=== PATIENT | male | born 1940 | race Caucasian/White ===

== ENCOUNTER 2025-02-20 05:33 | Emergency (ER) | payer MEDICARE, SELFPAY ==
--- NOTE | ~2025-02-20 | CT_ITS ---
CLINICAL INDICATION: Constipation COMPARISON: None. TECHNIQUE: Multiple contiguous axial images of the abdomen and pelvis were performed without the admi nistration of intravenous contrast The dose-length product (DLP) was 884.90 mGy-cm. Automated exposure control and iterative reconstruction technique were employed. FINDINGS/OBSERVATIONS: Visualized lower thorax: The bilateral lung bases are clear. The heart is of normal size, without pericardial effusion. Small hiatal hernia is present. Liver: The liver demonstrates homogeneous attenuation and is not enlarged. Gallbladder and biliary system: The gallbladder is surgically absent. Pancreas: Limited evaluation of the pancreas secondary to the lack of intravenous contrast. Spleen: The spleen demonstrates homogeneous attenuation and is not enlarged. Kidneys: The bilateral kidneys are unremarkable, without hydronephrosis or renal calculi. Adrenal glands: Unremarkable. Gastrointestinal tract: Colonic diverticulosis without surrounding inflammatory change. Fecal stasis within the colon. Fecal stasis distends the rectum with mural thickening and surrounding inflammatory change, findings suggesting fecal impaction. Inflammatory change within the presacral position, also consistent with fecal impaction. Appendix: The appendix is not definitively visualized. However, no pericecal inflammatory change is identified suggest the presence of acute appendicitis. Vasculature: Densely calcified atherosclerotic disease. Lymph nodes: Scattered non-pathologically enlarged/morphologically suspicious lymph nodes within the retroperitone um and at the root of the mesentery. Pelvic structures: The bladder is markedly distended, and otherwise unremarkable. The prostate gland is not enlarged. Body wall and musculoskeletal: Age-appropriate degenerative disease within the lumbosacral spine. IMPRESSION: Fecal impaction, as detailed above. Significant bladder distention. Reviewed, dictated and finalized at location A.
[2025-02-20 05:31] VITALS: BP 141/76; PULSE 74; RESP 20; TEMP 36.8; O2SAT 100
[2025-02-20 05:51] VITALS: BP 141/75; PULSE 70; RESP 16; O2SAT 98
--- NOTE | 2025-02-20 05:57 | ED.GENADULT ---
HPI - General Adult General Chief complaint: Unspecified Stated complaint: Constipation Time Seen by Provider: 02/20/25 05:57 Source: patient and family () Mode of arrival: EMS Limitations: no limitations History of Present Illness HPI narrative: Patient presents with concern for constipation. His last bowel movement was 5 days ago, Friday. He states he has not had a sufficient bowel movement only some occasional watery stools oozing from his rectum. He has longstanding history of constipation although not this bad and is typically on a bowel regimen but he and his are traveling [place] the country currently visiting various family members and he did not bring his bowel regimen with him. He had previously received regular colonoscopies. He is intermittently experiencing abdominal pain associated with this as he feels he is distended. He also notes that this is making it difficult for him to urinate. He has been trying to stay hydrated. He is not on any narcotic/opiate therapy. He has not noticed any bleeding from his rectum or in the discharge/stool from his rectum. Not on any anticoagulation other than aspirin. He denies any nausea, vomiting, fevers, chills. His last oral intake was at 7:00 p.m. but he denies having an appetite. Patient his reside in [place] which is where they are headed back to today, a [address], but he does all the driving and states that be seated has been difficult given his symptoms. Related Data Allergies Allergy/AdvReac Type Severity Reaction Status Date / Time No Known Allergies Allergy Verified 02/20/25 05:36 [facility] Past Medical History Medical History CKD (chronic kidney disease) Constipation Surgical History Surgical History (Updated 02/20/25 @ 18:09 by Arpita Blackman MD) History of colonoscopy Social History Social History (Updated 02/20/25 @ 18:10 by Arpita Blackman MD) Social History: Regularly travels cross country/driving Living arrangements: with family Additional living arrangements comments: , in [place] Exam Narrative: GENERAL: Well-appearing, well-nourished, and in no acute distress. HEAD: Normocephalic, atraumatic. EYES: Non injected, non icteric ENT: Nares clear, no rhinorrhea or epistaxis. Gross auditory acuity intact. NECK: Supple. No meningismus. CHEST: Speaking in full sentences. No respiratory distress. HEART: Regular rate and rhythm. . ABDOMEN: Soft, distended. Mild firmness particularly in the right lower quadrant left lower quadrant but No rigidity or guarding. Not peritoneal EXTREMITIES: Normal range of motion. No lower extremity edema. SKIN: Warm, dry, no rash. NEURO: No focal deficits. Alert and oriented. Answering questions. Following commands. Normal speech without aphasia or dysarthria. PSYCH: Normal mood and affect. Course Vital Signs Vital signs: Vital Signs Temperature 98.2 F 02/20/25 05:31 Pulse Rate 74 02/20/25 05:31 Respiratory Rate 20 02/20/25 05:31 Blood Pressure 141/76 H 02/20/25 05:31 Pulse Oximetry 100 02/20/25 05:31 Oxygen Delivery Room Air 02/20/25 05:31 Temperature 98.2 F 02/20/25 05:31 Pulse Rate 73 02/20/25 07:16 Respiratory Rate 18 02/20/25 07:16 Blood Pressure 144/71 H 02/20/25 07:16 Pulse Oximetry 99 02/20/25 07:16 Oxygen Delivery Room Air 02/20/25 05:31 Procedures Rectal Disimpaction Rectal Disimpaction #1: Rectal Disimpaction Date: 02/20/25 Rectal Disimpaction Time: 07:45 Time out performed rectal disimpaction: No Indication: fecal impaction Procedural Sedation: No Sedation/Analgesia: none Technique: manual disimpaction with gloved finger Result: significant stool output Patient Tolerated Procedure: well and no complications Complications: none Medical Decision Making MDM Narrative Medical decision making narrative: Exceedingly pleasant Patient presents with concern for constipation as he has not had bowel movement since Friday the only occasional watery using stool from his rectum. He has a history of constipation is normally on bowel regimen however hadn't been taking while traveling. In the emergency department he is afebrile with acceptable vital signs, mild hypertension. Hyperglycemia without anion gap acidosis. Creatinine is greater than 2 with no prior for comparison. Initially ordered 1L IVF although later patient is able to say that his GFR had been 25 and then more recently 27 so this does appear to be chronic. He has a mild leukocytosis, mild thrombocytopenia, and he is anemic with no prior for comparison. Fecal impaction on CT as below. Digital disimpaction performed as above. Patient tolerates this well and is experiencing significant relief after this is performed. Glycerin suppository was inserted after disimpaction. Bowel regimen ordered although RN discussed with patient which medications he preferred to take now, based on if he and were staying in the area versus driving back to [place] today. Did recommend that at the very least metamucil be given. Advised follow-up with his primary care physician and to return to the emergency department any new or worsening symptoms. Differential Diagnosis Differential Diagnosis: Constipation, obstipation, fecal impaction, small-bowel obstruction Vital Signs Vital Signs: Vital Signs Temperature 98.2 F 02/20/25 05:31 Pulse Rate 74 02/20/25 05:31 Respiratory Rate 20 02/20/25 05:31 Blood Pressure 141/76 H 02/20/25 05:31 Pulse Oximetry 100 02/20/25 05:31 Oxygen Delivery Room Air 02/20/25 05:31 Temperature 98.2 F 02/20/25 05:31 Pulse Rate 73 02/20/25 07:16 Respiratory Rate 18 02/20/25 07:16 Blood Pressure 144/71 H 02/20/25 07:16 Pulse Oximetry 99 02/20/25 07:16 Oxygen Delivery Room Air 02/20/25 05:31 Lab Data Lab results reviewed: Yes I reviewed the patient's lab results. 02/20/25 06:21 02/20/25 06:21 Labs: Lab Results 02/20/25 02/20/25 Range/Units 06:21 06:36 WBC 10.6 H (4.5-10.0) K/mm3 RBC 3.69 L (4.6-6.20) M/mm3 Hgb 11.6 L (14.0-18.0) g/dL Hct 35.4 L (42.0-52.0) % MCV 95.9 (80-100) fl MCH 31.4 (26-34) pg MCHC 32.8 (32-36) g/dl RDW 13.8 (11.5-14.5) % Plt Count 135 L (150-375) k/mm3 MPV 10.9 H (7.4-10.4) fl Immature Gran % (Auto) 0.4 (0-0.5) % Neut % (Auto) 79.3 H (45.5-73.1) % Lymph % (Auto) 11.8 L (18.3-44.2) % Grainger % (Auto) 7.1 (2.6-8.5) % Eos % (Auto) 0.9 (0-4.4) % Baso % (Auto) 0.5 (0.2-1.2) % Lymph # (Auto) 1.25 (0.9-3.2) K/mm3 Grainger # (Auto) 0.8 H (0.1-0.6) K/mm3 Eos # (Auto) 0.1 (0-0.3) K/mm3 Baso # (Auto) 0.1 (0.0-0.1) K/mm3 Abs Immat Gran (auto) 0.04 H (0.00-0.031) K/mm3 Absolute Neuts (auto) 8.4 H (1.3-6.7) K/mm3 Absolute Nucleated RBC 0.000 (0.0-0.012) K/mm3 Nucleated RBC % 0.0 (0.0-0.2) % Sodium 142 (137-145) mmol/L Potassium 4.4 (3.4-5.0) mmol/L Chloride 109 H (98-107) mmol/L Carbon Dioxide 24 (22-30) mmol/L Anion Gap 9 (4-12) mmol/L BUN 33 H (9-20) mg/dL Creatinine 2.33 H (0.7-1.3) mg/dL Estim Creat Clear Calc 21 ml/min Estimated GFR 27 L (59 - ) Glucose 191 H (65-110) mg/dL Lactic Acid 1.4 (0.7-2.0) mmol/L Calcium 8.8 (8.4-10.2) mg/dL Magnesium 2.0 (1.6-2.3) mg/dL Total Bilirubin 0.3 (0.2-1.3) mg/dL AST 29 (17-59) U/L ALT 22 (6-50) U/L Alkaline Phosphatase 79 (38-126) U/L Total Protein 7.0 (6.3-8.2) g/dL Albumin 4.1 (3.5-5.1) g/dL Urine Color Yellow (Yellow) Urine Appearance Clear (Clear) Urine pH 6.0 (5.0-9.0) Ur Specific [place] 1.014 (1.001-1.035) Urine Protein Trace (Negative) mg/dL Urine Glucose (UA) 2+ H (Negative) mg/dL Urine Ketones Negative (Negative) mg/dL Ur Blood (Man) Negative (Negative) Urine Nitrate Negative (Negative) Urine Bilirubin Negative (Negative) Urine Urobilinogen 0.2 (<2.0) mg/dL Leukocyte Esterase Rfl Negative (Negative) LAURO/UL Urine RBC 0-2 (0-2) /hpf Urine WBC 0-5 (0-3) /hpf Ur Squamous Epith Cells None seen (Few) /hpf Urine Bacteria None seen /hpf Urine Casts 0-2 Imaging Data Radiologist's impression: Impressions Abdomen/Pelvis CT 02/20/25 07:01 IMPRESSION: Fecal impaction, as detailed above. Significant bladder distention. Discharge Plan Discharge Clinical Impression: Hyperglycemia, CKD (chronic kidney disease), Normocytic anemia, Constipation, Fecal impaction in rectum Patient Disposition: Home Condition: Stable Instructions: Antibiotic Form, Constipation (ED), Chronic Kidney Disease (ED), High Fiber Diet (ED), Chronic Kidney Disease Diet (DC), Fecal Impaction (ED), Anemia (ED) Additional Instructions: You tolerated digital disimpaction well and should be able to start a bowel regimen that includes the spectrum of stool softeners (like metamucil/fiber) , Miralax, and, if needed, laxatives (magnesium citrate). Drink plenty of fluids and make sure your diet is high in fiber. If needed, can also perform an enema at home. Follow-up with primary care physician back in [place]. Return to the emergency department with any new or worsening symptoms. Patient Language: Malawian Prescriptions: New psyllium husk [Metamucil] 0.4 gram capsule 0.4 g PO DAILY Qty: 30 0RF polyethylene glycol 3350 [Miralax] 17 gram/dose powder 17 g PO DAILY Qty: 119 0RF magnesium citrate Solution 150 ml PO DAILY PRN (Reason: constipation) Qty: 296 0RF Fleet Enema 19-7 gram/118 mL enema 118 ml RECTAL ONCE PRN (Reason: constipation) Qty: 133 0RF Follow-up/Referrals: PHYSICIAN NOT ON STAFF,NONSTAFF [Primary Care Provider] - Time of Disposition: 08:05
--- OUTSIDE RECORDS SUMMARY | 2025-02-20 06:16 | XMS_ITS | Clinical Summary ---
Author Organization [facility] Facility Address [address] [address] Care Team Providers Care Byproduct Engineer Name Role Phone Unavailable Primary Care Provider Unavailabl e Allergies Active Allergy Reactions Criticality Noted Date Comments Morphine And Codeine Medium 02/17/2014 Causes skin to crawl Medications allopurinol (ZYLOPRIM) 300 MG tablet Take 150 mg by mouth 1 (one) time each day Patient takes 1/2 pill daily Active atorvastatin (LIPITOR) 40 MG tablet Take 40 mg by mouth 1 (one) time each day Active cyanocobalamin (VITAMIN B-12) 1000 MCG tablet Take 100 mcg by mouth 1 (one) time each day Active [place]-3 Fatty Acids (Fish Oil) 1000 MG capsule delayed-release Take by mouth Active insulin glargine (LANTUS) 100 UNIT/ML injection Inject 24 Units under the skin 1 (one) time each day Active pregabalin (LYRICA) 75 MG capsule Take 75 mg by mouth in the morning and 75 mg in the evening. Active traZODone (DESYREL) 100 MG tablet Take 100 mg by mouth every night Active cetirizine (ZyrTEC) 10 MG chewable tablet Chew 10 mg in the morning and 10 mg in the evening. Active Multiple Vitamin (multivitamin) capsule Take 1 capsule by mouth 1 (one) time each day Active tamsulosin (FLOMAX) 0.4 MG 24 hr capsule Take 0.4 mg by mouth in the morning and 0.4 mg in the evening. Active Multiple Vitamins-Minera ls (PRESERVISION AREDS 2 PO) Take 2 tablets by mouth in the morning and 2 tablets in the evening. Active ferrous sulfate 325 (65 Fe) MG EC tablet Take 325 mg by mouth in the morning. Do not crush, chew, or split. Active metoprolol succinate XL (Toprol XL) 50 MG 24 hr tablet Take 1 tablet (50 mg total) by mouth 1 (one) time each day Do not crush or chew. 30 tablet 11 09/16/20 24 025 Active aspirin (ST EZRA) 81 MG EC tablet Take 81 mg by mouth 1 (one) time each day Active METAMUCIL FIBER PO Take 2 capsules by mouth in the morning. Active Nutritional Supplements (MAINTAIN PO) Take by mouth Active omeprazole (PriLOSEC) [address] capsule Take 40 mg by mouth if needed (For heartburn) Do not crush or chew. 025 Discontinued(Di scontinued by another clinician (does not appear on AVS)) Cholecalciferol (Vitamin D3) 1.25 MG (97781 UT) capsule Take 1.25 mg by mouth in the morning. 025 Discontinued Active Problems Problem Noted Date Diagnosed Date Vitamin D deficiency, not otherwise specified Hyperparathyroidism due to renal insufficiency 0 01/31/2025 Proteinuria, not otherwise specified 01/31/2025 Hypertensive chronic kidney disease with stage 1 through stage 4 chronic kidney disease, or unspecified chronic kidney disease 09/16/2024 Type 2 diabetes mellitus wit h diabetic chronic kidney disease 09/16/2024 Anemia in chronic kidney disease 09/16/2024 Iron deficiency anemia, not otherwise specified 09/16/2024 Hypertension 09/16/2024 Stage 3b chronic kidney disease 09/16/2024 Acute nontraumatic kidney injury, not otherwise specified 09/16/2024 Bacterial endocarditis 06/02/2024 Diabetic peripheral neuropathy 06/02/2024 Hyperlipidemia 06/02/2024 Gout 06/02/2024 Insomnia 06/02/2024 Degenerative disorder of macula 06/02/2024 Sensorineural hearing loss 06/02/2024 Chronic diastolic heart failure 06/02/2024 Retroperitoneal hemorrhage 06/02/2024 Gastroesophageal reflux disease 06/02/2024 Benign prostatic hyperplasia with outflow obstru ction 06/02/2024 Abnormal weight loss 06/02/2024 Decrease in appetite 06/02/2024 Compression fracture of thoracic vertebra 2023 Old myocardial infarction 06/02/2024 At increased risk for falls 06/02/2024 Hypoglycemia due to type 2 diabetes mellitus 12/2023 Encounters Date Type Department Care Team Description 01/31/2025 10:20 AM EDT Office Visit [facility] [address] [place] [address] Rob Anderson MD Hypertensive chronic kidney disease with stage 1 through stage 4 chronic kidney disease, or unspecified chronic kidney disease (Primary Dx); Type 2 diabetes mellitus with diabetic chronic kidney disease (HCC); Anemia in chronic kidney disease; Iron deficiency anemia, not otherwise specified; Hypertension; Stage 3b chronic kidney disease (HCC); Acute nontraumatic kidney injury, not otherwise specified (HCC); Vitamin D deficiency, not otherwise specified; Hyperparathyroidism due to renal insufficiency (HCC); Proteinuria, not otherwise specified 01/27/2025 Orders Only [facility] [address] [place] [address] Rob Anderson MD 01/27/2025 Office Communication [facility] [address] [place] [address] Adriane Mccall from Last 3 Months Social History Tobacco Use Types Packs/Day Years Used Date Smoking Tobacco: Never Assessed Sex and Gender Information Value Date Recorded Sex Assigned at Not on file Legal Sex Male 10:56 AM EDT Gender Identity Not on file Sexual Orientation Not on file Last Filed Vital Signs Vital Sign Reading Time Taken Comments Blood Pressure 130/86 01/31/2025 10:40 AM EDT Pulse 80 01/31/2025 10:40 AM EDT Temperature - - Respiratory Rate 12 01/31/2025 10:40 AM EDT Oxygen Saturation 96% 01/31/2025 10:40 AM EDT Inhaled Oxygen Concentration - - Weight 82.2 kg (181 lb 2.4 oz) 01/31/2025 10:40 AM EDT Height 177.8 cm (5' 10) 01/31/2025 10:40 AM EDT Body Mass Index 25.99 01/31/2025 10:40 AM EDT Plan of Treatment Upcoming Encounters Date Type Department Care Team (Late st Contact Info) Description 06/30/2025 2:40 PM EDT Office Visit [facility] [address] [place] [address] Rob Anderson MD [address] [place] [address] Health Maintenance Due Date Last Done Comments Diabetes: Ophthalmology Exam 05/21/2024 05/03/2022 Diabetes: Pedal Pulse Checked 05/21/2024 Diabetes: Sensory Foot Exam 05/21/2024 Diabetes: Visual Foot Exam 05/21/2024 Diabetes: Hemoglobin A1C 12/08/2024 024, 04/30/2024, 03/18/2024, Additional history exists Influenza Vaccine (Season Ended) 2025 07/01/2022, 07/15/2018, 07/16/2017, Additional history exists Pneumococcal Vaccine: 50+ Years Completed 11/01/2014, 03/10/2007 Hepatitis B Vaccine Aged Out No longe r eligible based on patient's age to complete this topic Procedures Procedure Name Priority Date/Time Associated Diagnosis Comments VITAMIN D 25 HYDROXY Routine 01/27/2025 2:49 PM EDT FERRITIN Routine 01/27/2025 2:49 PM EDT PTH, INTACT AND CALCIUM Routine 01/27/2025 2:49 PM EDT URINE ALBUMIN / CREATININE RATIO Routine 01/27/2025 2:49 PM EDT MAGNESIUM Routine 01/27/2025 2:49 PM EDT IRON PANEL (FE, TIBC, TSAT) Routine 01/27/2025 2:49 PM EDT URINALYSIS, COMPLETE Routine 01/27/2025 2:49 PM EDT PROTEIN / CREATININE RATIO, URINE Routine 01/27/2025 2:49 PM EDT Hypertensive chronic kidney disease with stage 1 through stage 4 chronic kidney disease, or unspecified chronic kidney disease Type 2 diabetes mellitus with diabetic chronic kidney disease (HCC) Anemia in chronic kidney disease Iron deficiency anemia, not otherwise specified Hypertension Stage 3b chronic kidney disease (HCC) Acute nontraumatic kidney injury, not otherwise specified (HCC) Vitamin D deficiency, not otherwise specified Hyperparathyroidism due to renal insufficiency (HCC) Proteinuria, not otherwise specified RENAL FUNCTION PANEL Routine 01/27/2025 2:49 PM EDT Hypertensive chronic kidney disease with stage 1 through stage 4 chronic kidney disease, or unspecified chronic kidney disease Type 2 diabetes mellitus with diabetic chronic kidney disease (HCC) Anemia in chronic kidney disease Iron deficiency anemia, not otherwise specified Hypertension Stage 3b chronic kidney disease (HCC) Acute nontraumatic kidney injury, not otherwise specified (HCC) Vitamin D deficiency, not otherwise specified Hyperparathyroidism due to renal insufficiency (HCC) Proteinuria, not otherwise specified CBC Routine 01/27/2025 2:49 PM EDT Hypertensive chronic kidney disease with stage 1 through stage 4 chronic kidney disease, or unspecified chronic kidney disease Type 2 diabetes mellitus with diabetic chronic kidney disease (HCC) Anemia in chronic kidney disease Iron deficiency anemia, not otherwise specified Hypertension Stage 3b chronic kidney disease (HCC) Acute nontraumatic kidney injury, not otherwise specified (HCC) Vitamin D deficiency, not otherwise specified Hyperparathyroidism due to renal insufficiency (HCC) Proteinuria, not otherwise specified PROTEIN / CREATININE RATIO, URINE Routine 01/27/2025 2:49 PM EDT VITAMIN D 25 HYDROXY Routine 01/27/2025 2:49 PM EDT FERRITIN Routine 01/27/2025 2:49 PM EDT URINALYSIS WITH MICROSCOPIC Routine 01/27/2025 2:49 PM EDT CBC Routine 01/27/2025 2:49 PM EDT URINE ALBUMIN / CREATININE RATIO Routine 01/27/2025 2:49 PM EDT RENAL FUNCTION PANEL Routine 01/27/2025 2:49 PM EDT IRON PANEL (FE, TIBC, TSAT) Routine 01/27/2025 2:49 PM EDT MAGNESIUM Routine 01/27/2025 2:49 PM EDT PTH, INTACT AND CALCIUM Routine 01/27/2025 2:49 PM EDT HEMOGLOBIN A1C (EXTERNAL RESULT ENTRY) Routine 09/09/2024 from Last 3 Months or Most Recently Relevant to Health Maintenance Results * (ABNORMAL) Urinalysis, Complete (01/27/2025 2:49 PM EDT) Color, Urine YELLOW YELLOW See ord er comments Appearance Urine CLEAR CLEAR See order comments Specific Bude, UA 1.015 1.001 - 1.035 See order comments pH Urine 5.5 5.0 - 8.0 See order comments Glucose Urine TRACE(A) NEGATIVE See or heron comments Bilirubin Urine NEGATIVE NEGATIVE See order comments Ketones, Urine NEGATIVE NEGATIVE See o rder comments Blood Urine NEGATIVE NEGATIVE See orde r comments Protein Urine TRACE(A) NEGATIVE See or heron comments Nitrite, Urine NEGATIVE NEGATIVE See o rder comments WBC Esterase Urine NEGATIVE NEGATIVE See order comments WBC NONE SEEN < OR = 5 /HPF See order comments RBC, Urine NONE SEEN < OR = 2 /HPF See order comments Squamous Epithelial, Urine NONE SEEN < OR = 5 /HPF See order comments Trans Epithelial, Urine DNR < OR = 5 See order comments Renal Epithelial Cells, Urine DNR < OR = 3 See order comments Bacteria, Urine NONE SEEN NONE SEEN /HPF See order comments Calcium Oxalate Crystals, Urine DNR NONE OR FEW See order comments Triple Phosphate Crystals, Urine DNR NONE OR FEW See order comments Uric Acid Crystals, Urine DNR NONE OR FEW See order comments Amorphous Sediments DNR NONE OR FEW See order comments Crystals DNR NONE SEEN See order comments Hyaline Casts, Urine NONE SEEN NONE SEEN /LPF See order comments Granular Casts, Urine DNR NONE SEEN See order comments Casts DNR NONE SEEN See order comments Yeast Budding, Urine DNR NONE SEEN See order comments Comments DNR See order comments Note: See order comments Comment: This urine was analyzed for the presence of WBC, RBC, bacteria, casts, and other formed elements. Only those elements seen were reported. Lab Performed By: [facility], [facility] [facility], [place], [address], Thanh Drew [facility] [place] [address] 01/27/2025 2:49 PM EDT 01/27/2025 2:52 PM EDT Rob Anderson MD LAB [id number] ICITED RESULTS Final Result Performing Organization Address [facility] Co de Phone Number JERAMY MILLER See order comments [place] [address] * Iron Panel (Fe, TIBC, TSAT) (01/27/2025 2:49 PM EDT) Only the most recent of2 resultswithin the time period is included. Iron, Total 102 50 - 180 mcg/dL See order comments TIBC 325 250 - 425 mcg/dL (calc) See order comments Iron Saturation (TSat) 31 20 - 48 % (calc) See order comments Comment: Lab Performed By: [facility], [facility] [facility], [place], [address], Thanh Drew [facility] [place] [address] 01/27/2025 2:49 PM EDT 01/27/2025 2:52 PM EDT us Rob Anderson MD LAB BLOOD ORDERABLES Final Resul t Performing Organization Address [facility] Co de Phone Number JERAMY MILLER See order comments [place] [address] * PTH, Intact and Calcium (01/27/2025 2:49 PM EDT) Only the most recent of2 resultswithin the time period is included. PTH, Intact 55 16 - 77 pg/mL See order comments Comment: Interpretive Guide Intact PTH Calcium ------- Normal Parathyroid Normal Normal Hypoparathyroidism Low or Low Normal Low Hyperparathyroidism Primary Normal or High High Secondary High Normal or Low Tertiary High High Non-Parathyroid Hypercalcemia Low or Low Normal High Calcium 9.0 8.6 - 10.3 mg/dL See order comments Comment: Lab Performed By: [facility], [facility] [place], [address], Thanh Drew [facility] [place] [address] 01/27/2025 2:49 PM EDT 01/27/2025 2:52 PM EDT us Rob Anderson MD LAB BLOOD ORDERABLES Final Resul t Performing Organization Address [facility] Co de Phone Number JERAMY MILLER See order comments [place] [address] * (ABNORMAL) Urine Protein / creatinine ratio (01/27/2025 2:49 PM EDT) Only the most recent of2 resultswithin the time period is included. Creatine Urine, Random 77 20 - 320 mg/dL See order comments Protein/Creatinin e Ratio, Urine 286(H) 25 - 148 mg/g creat See order comments Urine Protein/Creatinin e Ratio 0.286(H) 0.025 - 0.148 mg/mg creat See order comments Protein Urine Random 22 5 - 25 mg/dL See order comments Comment: Lab Performed By: [facility], [address] [place], [address], Thanh Drew [facility] [place] [address] Urine specimen (specimen) Urine specimen obtained by clean catch procedure / Unknown 01/27/2025 2:49 PM EDT 01/27/2025 2:52 PM EDT us Rob Anderson MD LAB URINE ORDERABLES Final Resul t Performing Organization Address [facility]/ZIP Co de Phone Number JERAMY MILLER See order comments [place] [address] * Urine Albumin / Creatinine Ratio (01/27/2025 2:49 PM EDT) Only the most recent of2 resultswithin the time period is included. Creatine Urine, Random 77 20 - 320 mg/dL See order comments Albumin, Urine 1.9 See Note: mg/dL See order comments Comment: Reference Range: Reference Range Not established Alb/Creat Ratio, Ur 25 <30 mg/g creat See order comments Comment: The ADA defines abnormalities in albumin excretion as follows: Albuminuria Category Result (mg/g creatinine) Normal to Mildly increased <30 Moderately increased 30-299 Severely increased > OR = 300 The ADA recommends that at least two of three specimens collected within a 3-6 month period be abnormal before considering a patient to be within a diagnostic category. Lab Performed By: [facility], [address] [place] [address], [phone], Thanh Drew [facility] [address] [place] [address] [place] [facility] 01/27/2025 2:49 PM EDT 01/27/2025 2:52 PM EDT Rob Anderson MD LAB URINE ORDERABLES Final Resul t JERAMY MILLER See order comments [place] [address] * Vitamin D 25 Hydroxy (01/27/2025 2:49 PM EDT) Only the most recent of2 resultswithin the time period is included. Vitamin D, 25-OH, Total, IA 70 30 - 100 ng/mL See order comments Comment: Vitamin D Status 25-OH Vitamin D: Deficiency: <20 ng/mL Insufficiency: 20 - 29 ng/mL Optimal: > or = 30 ng/mL For 25-OH Vitamin D testing on patients on D2-supplementation and patients for whom quantitation of D2 and D3 fractions is required, the QuestAssureD(TM) 25-OH VIT D, (D2,D3), LC/MS/MS is recommended: order code 39572 (patients >2yrs). See Note 1 Note 1 For additional information, please refer to http://education.Autopilot (formerly [employer]isl[employer]).Sysorex/faq/DZA392 (This link is being provided for informational/ educational purposes only.) Lab Performed By: [facility], [address] [place] [address], [phone], Thanh Drew [facility] [address] [place] [address] [place] [address] 01/27/2025 2:49 PM EDT 01/27/2025 2:52 PM EDT us Rob Anderson MD LAB BLOOD ORDERABLES Final Resul t JERAMY MILLER See order comments [place] [address] * (ABNORMAL) Urinalysis with microscopic (01/27/2025 2:49 PM EDT) Color, Urine YELLOW YELLOW [facility] Appearance Urine CLEAR CLEAR [facility] Specific Bude, UA 1.015 1.001 - 1.035 [facility] pH Urine 5.5 5.0 - 8.0 [facility] Glucose, Ur TRACE(A) NEGATIVE [facility] Bilirubin, Urine NEGATIVE NEGATIVE [facility] Ketones, Urine NEGATIVE NEGATIVE [facility] Hemoglobin Ur Ql Strip NEGATIVE NEGATIVE [facility] Protein, Ur TRACE(A) NEGATIVE [facility] Nitrite, Urine NEGATIVE NEGATIVE [facility] WBC Esterase Urine NEGATIVE NEGATIVE [facility] WBC, Urine NONE SEEN < OR = 5 /HPF [facility] RBC, Urine NONE SEEN < OR = 2 /HPF [facility] Epithelial Cells in Urine NONE SEEN < OR = 5 /HPF [facility] Trans Epithelial, Urine CANCELED < OR = 5 /HPF [facility] Comment:Result canceled by t he ancillary. Renal Epithelial Cells, Urine CANCELED < OR = 3 /HPF [facility] Comment:Result canceled by t he ancillary. Bacteria NONE SEEN NONE SEEN /HPF [facility] Calcium Oxalate Crystals, Urine CANCELED NONE OR FEW /HPF [facility] Comment:Result canceled by t he ancillary. Triple Phosphate Crystals, Urine CANCELED NONE OR FEW /HPF [facility] Comment:Result canceled by t he ancillary. Uric Acid Crystals, Urine CANCELED NONE OR FEW /HPF [facility] Comment:Result canceled by t he ancillary. Amorphous Sediments CANCELED NONE OR FEW /HPF [facility] Comment:Result canceled by t he ancillary. Crystals CANCELED NONE SEEN /HPF [facility] Comment:Result canceled by t he ancillary. Hyaline Casts, Urine NONE SEEN NONE SEEN /LPF [facility] Granular Casts, Urine CANCELED NONE SEEN /LPF [facility] Comment:Result canceled by t he ancillary. Casts CANCELED NONE SEEN /LPF [facility] Comment:Result canceled by t he ancillary. Yeast, UA CANCELED NONE SEEN /HPF [facility] Comment:Result canceled by t he ancillary. Note: [facility] Comment: This urine was analyzed for the presence of WBC, RBC, bacteria, casts, and other formed elements. Only those elements seen were reported. 01/27/2025 2:49 PM EDT 01/27/2025 2:52 PM EDT Narrative [facility] - 01/28/2025 2:20 PM EDT FASTING:NO FASTING: NO Resulting Agency Comment Performing Organization Information: Site ID: [id number] Name: [facility] Address: [address] [place] [id number] Director: Thanh Drew us Rob Anderson MD LAB URINE ORDERABLES Final Resul t [facility] [address] * (ABNORMAL) CBC with Platelets no Diff (01/27/2025 2:49 PM EDT) Only the most recent of2 resultswithin the time period is included. WBC 7.1 3.8 - 10.8 Thousand/u L See order comments RBC 3.59(L) 4.20 - 5.80 Million/uL See order comments Hgb 11.7(L) 13.2 - 17.1 g/dL See order comments Hematocrit 35.3(L) 38.5 - 50.0 % See order comments MCV 98.3 80.0 - 100.0 fL See order comments MCH 32.6 27.0 - 33.0 pg See order comments MCHC 33.1 32.0 - 36.0 g/dL See order comments Comment: For adults, a slight decrease in the calculated MCHC value (in the range of 30 to 32 g/dL) is most likely not clinically significant; however, it should be interpreted with caution in correlation with other red cell parameters and the patient's clinical condition. RDW 14.2 11.0 - 15.0 % See order comments Platelets 128(L) 140 - 400 Thousand/u L See order comments MPV 11.6 7.5 - 12.5 fL See order comments Comment: Lab Performed By: [facility], [address] [place], [address], Thanh Drew [facility] [address] [place] [address] Blood specimen (specimen) Venous blood / Unknown 01/27/2025 2:49 PM EDT 01/27/2025 2:52 PM EDT us Rob Anderson MD LAB BLOOD ORDERABLES Final Resul t [facility] See order comments [place] [address] * Magnesium (01/27/2025 2:49 PM EDT) Only the most recent of2 resultswithin the time period is included. Magnesium 1.9 1.5 - 2.5 mg/dL See order comments Comment: Lab Performed By: [facility], [address] [place], [address], Thanh Drew [facility] [place] [address] 01/27/2025 2:49 PM EDT 01/27/2025 2:52 PM EDT us Rob Anderson MD LAB BLOOD ORDERABLES Final Resul t Performing Organization Address [facility] de Phone Number [facility] See order comments [place] [address] * Ferritin (01/27/2025 2:49 PM EDT) Only the most recent of2 resultswithin the time period is included. Pathologist [facility] Ferritin 112 24 - 380 ng/mL See order comments Comment: Lab Performed By: [facility], [address] [place] [address], [phone], Thanh Drew [facility] [place] [address] 01/27/2025 2:49 PM EDT 01/27/2025 2:52 PM EDT us Rob Anderson MD LAB BLOOD ORDERABLES Final Resul t Performing Organization Address [facility] de Phone Number [facility] See order comments [place] [address] * (ABNORMAL) Renal function panel (01/27/2025 2:49 PM EDT) Only the most recent of2 resultswithin the time period is included. Glucose 195(H) 65 - 139 mg/dL See order comments Comment: Non-fasting reference interval BUN 39(H) 7 - 25 mg/dL See order comments Creatinine 2.27(H) 0.70 - 1.22 mg/dL See order comments eGFR CKD-EPI CR 2020 27(L) > OR = 60 mL/min/1.7 3m2 See order comments BUN/Creatinine Ratio 17 6 - 22 (calc) See order comments Sodium 139 135 - 146 mmol/L See order comments Potassium 4.4 3.5 - 5.3 mmol/L See order comments Chloride 106 98 - 110 mmol/L See order comments Bicarbonate (CO2) 24 20 - 32 mmol/L See order comments Calcium 9.0 8.6 - 10.3 mg/dL See order comments Phosphorus 4.2 2.1 - 4.3 mg/dL See order comments Albumin 3.9 3.6 - 5.1 g/dL See order comments Comment: Lab Performed By: [facility], [address] [place] [address], [phone], Thanh Drew [facility] [address] [place] [address] Blood specimen (specimen) Venous blood / Unknown 01/27/2025 2:49 PM EDT 01/27/2025 2:52 PM EDT Rob Anderson MD LAB BLOOD ORDERABLES Final Resul t JERAMY MILLER See order comments [place] [address] * Hemoglobin A1C (09/09/2024) Hemoglobin A1C 7.2 Blood specimen (specimen) Venous blood / Unknown 09/09/2024 Toño Provider LAB BLOOD ORDERABLES Sade l Result from Last 3 Months or Most Recently Relevant to Health Maintenance [facility]
--- OUTSIDE RECORDS SUMMARY | 2025-02-20 06:16 | XMS_ITS | Clinical Summary ---
Author Organization [facility] Address [address] [place] [address] Care Team Providers Care Barber Or Beauty Shop Manager Name Role Phone No, Physician Primary Care Provider [phone] Allergies No known active allergies Social History Tobacco Use Types Packs/Day Years Used Date Smoking Tobacco: Never Assessed Personal Safety Answer Date Recorded Have you ever been in or are you currently in a harmful physical or emotional relationship or is someone making you feel afraid or unsafe? Denies 03/21/2024 Sex and Gender Information Value Date Recorded Sex Assigned at Not on file Legal Sex Male 8:37 AM CDT Gender Identity Not on file Sexual Orientation Not on file Last Filed Vital Signs Vital Sign Reading Time Taken Comments Blood Pressure 131/69 03/21/2024 2:19 PM CDT Pulse 71 03/21/2024 2:19 PM CDT Temperature 36.7 C (98 F) 03/21/2024 2:19 PM CDT Respiratory Rate 18 03/21/2024 2:19 PM CDT Oxygen Saturation 99% 03/21/2024 2:19 PM CDT Inhaled Oxygen Concentration - - Weight 75.3 kg (166 lb) 03/21/2024 8:39 AM CDT Height - - Body Mass Index - - Plan of Treatment Health Maintenance Due Date Last Done Comments Depression Screening 1938 Fall Risk Assessment 1938 DTaP/Tdap/Td Vaccine (1 - Tdap) 1949 Hepatitis B Screening 1956 Pneumococcal vaccine 65+ (1 of 1 - PCV) 1988 Zoster Vaccine (1 of 2) 1988 Well Visit 65+ 2003 Influenza Vaccine (Season Ended) 2025 Insurance MANAGED MEDICARE GENERIC MANAGED MEDICARE GENERIC Care Teams Barber Or Beauty Shop Manager Relationship Specialty Start Date End Date No, Physician PCP - General 03/21/24
--- OUTSIDE RECORDS SUMMARY | 2025-02-20 06:16 | XMS_ITS | Clinical Summary ---
Author Organization [facility] Address [address] [place] [id number] Care Team Providers Care Mixer Attendant Name Role Phone Unavailable Primary Care Provider Unavailabl e Allergies No known active allergies Medications ondansetron (ZOFRAN-ODT) 4 MG disintegrating tablet Take ONE tablet (4 mg total) by mouth every 8 (eight) hours as needed for Nausea or Vomiting. 8 tablet Active Social History Tobacco Use Types Packs/Day Years Used Date Smoking Tobacco: Never Smokeless Tobacco: Never Tobacco Cessation:Counseling Given: Not Answered Alcohol Use Standard Drinks/Week Comments Never 0 (1 standard drink = 0.6 oz pur e alcohol) Sex and Gender Information Value Date Recorded Sex Assigned at Not on file Legal Sex Male 10:01 PM EST Gender Identity Not on file Sexual Orientation Not on file Last Filed Vital Signs Vital Sign Reading Time Taken Comments Blood Pressure 167/76 11/10/2024 10:05 PM EST Pulse 90 11/10/2024 10:48 PM EST Temperature 37.9 C (100.2 F) 11/10/2024 10:47 PM EST Respiratory Rate 17 11/10/2024 10:0 5 PM EST Oxygen Saturation 94% 11/10/2024 10: 48 PM EST Inhaled Oxygen Concentration - - Weight 80.7 kg (177 lb 14.6 oz) 025 10:06 PM EST Height 177.8 cm (5' 10) 11/10/2024 10: 06 PM EST Body Mass Index 25.53 11/10/2024 10:06 PM EST Plan of Treatment Health Maintenance Due Date Last Done Comments Annual Physical Exam 1940 SDOH 1940 Zoster Vaccines (1 of 2) 1988 RSV Vaccine (1 - 1-dose 75+ series) 2013 COVID-19 Vaccine ( season) 2024 Annual Adult Depression Screen 09/29/2024 Influenza Vaccine (Season Ended) 2025 07/15/2018, 07/16/2017, 07/05/2016, Additional history exists Tetanus/Pertussis Adult Vaccine (One-time Booster) Completed 07/28/2012 Pneumococcal Vaccine: 50+ Years Completed 11/01/2014, 03/10/2007 Meningococcal Vaccine (MCV4) Aged Out No longer eligible based on patient's age to complete this topic Insurance [facility] [employer] CHOICE [place] [facility] [place] [address] [id number]
--- OUTSIDE RECORDS SUMMARY | 2025-02-20 06:16 | XMS_ITS | Data Portability ---
Author Organization [place], [id number]_ER_StVWomen Address [address] [place] [address] Care Team Providers Care Missile Control Pilot Name Role Phone ROSA MARIA STEVENS Primary Care Provider [phone] TIFFANY JACKSON Stacker Operator BELLE BOOKER Reinsurance Analyst PIA THOMASON Neurologist ROGELIO ZENDEJAS Orthopedic Surgeon TABITHA DSOUZA Urologist FRANCESCO BARROS Other Spatial Scientist Assessment Encounter Date Assessment Date Assessment LastModified by Organization Details LastModified Time 12/22/2024 12/22/2024 [ 32] minutes were spent in preparation for the clinic visit, reviewing records, tests, counseling and education of the patient, ordering medications, tests and procedures, coordinating care and documenting clinical information in the electronic health record. [email or web address] Not available 12/22/2024 14:24:34 Plan of Treatment Reminders Order Date Submit Date Provider Last Modified By Organization Details Last Modified Time Details Appointments Establish ed Patient 15 2024 11:15A M MESERET CORBIN NP Not available Not available Not available Establish ed Patient 20 2024 03:20P M Tiffany Jakcson MD Not available Not available Not available Short Appt 20 mins 2024 03:50P M Rosa Maria Hartman, DO Not available Not available Not available Lab urinalysi s, dipstick 2024 025 [email or web address] Amg - In Office Orders (For Internal Use Only), [address] [place], [address], 01/16/2025 23:39:56 hemoglobi n A1C, fingersti ck 2024 025 [email or web address] Amg - In Office Orders (For Internal Use Only), [address] [place], [address], 01/16/2025 23:39:56 Referral physical therapist referral - file only- pt to call if he wants this as expensive . 2024 025 [facility], [address] [place], [address], 01/26/2025 04:13:10 Procedures None recorded. Surgeries None recorded. Imaging None recorded. Medication Orders pregabali n 75 mg capsule 2024 025 [facility], [address] [place], [address], 01/14/2025 16:34:20 clotrimaz ole 1 % topical cream 2024 025 [facility], [address] [place], [address], 01/14/2025 16:20:46 memantine 5 mg tablet 2024 025 [facility], [address] [place], [address], 12/22/2024 14:25:54 memantine 10 mg tablet 2024 025 [facility], [address] [place], [address], 12/22/2024 14:25:53 Lantus Solostar U-100 Insulin 100 unit/mL (3 mL) subcutane ous pen 2024 025 [email or web address] [facility], [address] [place], [address], 11/02/2024 03:09:12 tramadol 50 mg tablet 2024 025 [email or web address] [facility], [address] [place], [address], 01/14/2025 16:34:48 duloxetin e 30 mg capsule,d elayed release 2024 025 [facility], [address] [place], [address], 10/19/2024 13:27:14 tizanidin e 2 mg tablet 2024 025 [facility], [address] [place], [address], 10/19/2024 13:27:13 Patient TargetsNo targets recorded. Patient Instructions Encounter Date Encounter Id Patient Instructions Last Modified By Organization Details Last Modified Time 10/19/2024 [id number] A healthy lifestyle: care instructions [email or web address] Not available 10/19/2024 13:27:11 10/26/2024 [id number] high blood pressure: care instructions [email or web address] Not available 10/26/2024 14:36:14 learning about high blood pressure [email or web address] Not available 10/26/2024 14:36:14 01/14/2025 [id number] preventing falls : care instructions [email or web address] Not available 01/14/2025 16:35:37 atrial fibrillation: care instructions [email or web address] Not available 01/16/2025 23:39:56 anemia: care instructions [email or web address] Not available 01/16/2025 23:40:49 anemia from chronic disease: care instructions [email or web address] Not available 01/16/2025 23:40:49 hand arthritis: exercises [email or web address] Not available 01/16/2025 23:40:49 Reason for Referral Physical Therapist Referral for Falls file only- pt to call if he wants this as expensive. Referring Physician: Rosa Maria Hartman, Internal Medicine, Encounter Date: 01/14/2025 Results Created Date Observation Date Name Description Value Unit Range Abnormal Flag Note LastModifiedBy Organization Detail LastModifiedTime 12/07/1912/09/2024 METHY LMALO QUENTIN ACID methylmaloni c acid 214 nmol/ L 85-423 Serum methy lmalo quentin acid (MMA) level s are used to diagn ose and monit or sever al rare inbor n error s of metab olism , inclu ding methy lmalo quentin acidu sweta. The enzym atic conve rsion of MMA to succi quentin acid requi res vitam in B12 (ap osyl- cobal leonard) as a cofac tor. Serum MMA level s are also used for asses sing funct ional vitam in B12 defic iency . Vitam in B12 is essen tial for neuro devel opmen t, parti cular ly early in pregn rosalie. Undia gnose d mater nal vitam in B12 defic iency may be assoc iated with adver se /neon atal outco mes, such as neura l tube defec ts and intra uteri ne growt h restr ictio n. [facility] utili zed Multi -Moda l Decom posit ion (MMD) amber sis to estab diana first and secon d trime ster- speci fic MMA refer ence inter vals in pregn rosalie, as given below : MMA, First trime ster (<13 wks gesta tion) : 58-16 7 nmol/ L MMA, Secon d trime ster (13-2 3 wks gesta tion) : 63-24 1 nmol/ L This test was devel oped and its amber tical perfo rmanc e ashley cteri stics have been deter mined by [facility]. It has not been clear ed or appro mel by the FDA. This assay has been valid ated pursu ant to the CLIA regul ation s and is used for clini [place] purpo ses. Not Available [facility] [address] [facility], [place], [address], 12/09/2024 23:35:12 12/07/19 25 12/09/2024 TSH TSH 2.38 mIU/L 0.40-4 .50 normal Not Available [facility] [address] [place], [address], 12/09/2024 23:35:13 12/07/19 25 12/09/2024 VITAM IN B12/F OLATE , SERUM PANEL vitamin B12 1369 pg/mL 200-11 00 high Not Available [facility] [address] [place], [address], 12/09/2024 23:35:13 12/07/19 25 12/09/2024 VITAM IN B12/F OLATE , SERUM PANEL folate, serum >24.0 NG/mL normal Refer ence Range Low: <3.4 Borde rline : 3.4-5 .4 Chanda l: >5.4 Not Available [facility] [address] [place], [address], 12/09/2024 23:35:13 01/06/20 25 01/08/2025 METHY LMALO QUENTIN ACID methylmaloni c acid 199 nmol/ L 85-423 Serum methy lmalo quentin acid (MMA) level s are used to diagn ose and monit or sever al rare inbor n error s of metab olism , inclu ding methy lmalo quentin acidu sweta. The enzym atic conve rsion of MMA to succi quentin acid requi res vitam in B12 (ap osyl- cobal leonard) as a cofac tor. Serum MMA level s are also used for asses sing funct ional vitam in B12 defic iency . Vitam in B12 is essen tial for neuro devel opmen t, parti cular ly early in pregn rosalie. Undia gnose d mater nal vitam in B12 defic iency may be assoc iated with adver se /neon atal outco mes, such as neura l tube defec ts and intra uteri ne growt h restr ictio n. [facility] utili zed Multi -Moda l Decom posit ion (MMD) amber sis to estab diana first and secon d trime ster- speci fic MMA refer ence inter vals in pregn rosalie, as given below : MMA, First trime ster (<13 wks gesta tion) : 58-16 7 nmol/ L MMA, Secon d trime ster (13-2 3 wks gesta tion) : 63-24 1 nmol/ L This test was devel oped and its amber tical perfo rmanc e ashley cteri stics have been deter mined by [facility]. It has not been clear ed or appro mel by the FDA. This assay has been valid ated pursu ant to the CLIA regul ation s and is used for clini [place] purpo ses. Not Available [facility] [address] [place], [address], 01/08/2025 15:18:26 01/06/20 25 01/08/2025 CBC (INCL UDES DIFF/ PLT) white blood cell count 7.5 thous and/u L 3.8-10 .8 normal Not Available [facility] [address] [place], [address], 01/08/2025 15:18:27 01/06/20 25 01/08/2025 CBC (INCL UDES DIFF/ PLT) red blood cell count 4.09 celestine on/uL 4.20-5 .80 low Not Available [facility] [address] [place], [address], 01/08/2025 15:18:27 01/06/20 25 01/08/2025 CBC (INCL UDES DIFF/ PLT) hemoglobin 12.9 g/dL 13.2-1 7.1 low Not Available [facility] [address] [place], [address], 01/08/2025 15:18:27 01/06/20 25 01/08/2025 CBC (INCL UDES DIFF/ PLT) hematocrit 39.2 % 38.5-5 0.0 normal Not Available [facility] [address] [place], [address], 01/08/2025 15:18:27 01/06/20 25 01/08/2025 CBC (INCL UDES DIFF/ PLT) MCV 95.8 fL 80.0-1 00.0 normal Not Available [facility] [address] [place], [address], 01/08/2025 15:18:27 01/06/20 25 01/08/2025 CBC (INCL UDES DIFF/ PLT) MCH 31.5 pg 27.0-3 3.0 normal Not Available [facility] [address] [place], [address], 01/08/2025 15:18:27 01/06/20 25 01/08/2025 CBC (INCL UDES DIFF/ PLT) MCHC 32.9 g/dL 32.0-3 6.0 normal For adult s, a sligh t decre ase in the calcu lated MCHC value (in the range of 30 to 32 g/dL) is most likel y not clini sania signi fican t; luiza er, it shoul d be inter prete d with cauti on in [facility] n with other red cell sekou eters and the patie nt's clini [place] condi tion. Not Available [facility] [address] [facility], [place], [address], 01/08/2025 15:18:27 01/06/20 25 01/08/2025 CBC (INCL UDES DIFF/ PLT) RDW 14.0 % 11.0-1 5.0 normal Not Available [facility] [address] [facility], [place], [address], 01/08/2025 15:18:27 01/06/20 25 01/08/2025 CBC (INCL UDES DIFF/ PLT) platelet count 148 thous and/u L 140-40 0 normal Not Available [facility] [place], [address], 01/08/2025 15:18:27 01/06/20 25 01/08/2025 CBC (INCL UDES DIFF/ PLT) MPV 11.8 fL 7.5-12 .5 normal Not Available [facility] [address] [place], [place] [address]tel [facility], [place], [address], 01/08/2025 15:18:27 01/06/20 25 01/08/2025 CBC (INCL UDES DIFF/ PLT) absolute neutrophils 4328 cells /uL 1500-7 800 normal Not Available [facility] [address] [place] [place] [address], [place], [address], 01/08/2025 15:18:27 01/06/20 25 01/08/2025 CBC (INCL UDES DIFF/ PLT) absolute lymphocytes 2415 cells /uL 850-39 00 normal Not Available [facility] [address] [place], [place] [address], [address], 01/08/2025 15:18:27 01/06/20 25 01/08/2025 CBC (INCL UDES DIFF/ PLT) absolute monocytes 578 cells /uL 200-95 0 normal Not Available [facility] [address] [place], [place] [address] [place], [address], 01/08/2025 15:18:27 01/06/20 25 01/08/2025 CBC (INCL UDES DIFF/ PLT) absolute eosinophils 113 cells /uL 15-500 normal Not Available [facility] [address] [place], [place] [address] [place], [address], 01/08/2025 15:18:27 01/06/20 25 01/08/2025 CBC (INCL UDES DIFF/ PLT) absolute basophils 68 cells /uL 0-200 normal Not Available [facility] [address] [place], [address], 01/08/2025 15:18:27 01/06/20 25 01/08/2025 CBC (INCL UDES DIFF/ PLT) neutrophils 57.7 % normal Not Available [facility] [address] [place], [address], 01/08/2025 15:18:27 01/06/20 25 01/08/2025 CBC (INCL UDES DIFF/ PLT) lymphocytes 32.2 % normal Not Available [facility] [address] [place], [address], 01/08/2025 15:18:27 01/06/20 25 01/08/2025 CBC (INCL UDES DIFF/ PLT) monocytes 7.7 % normal Not Available [facility] [address] [place], [address], 01/08/2025 15:18:27 01/06/20 25 01/08/2025 CBC (INCL UDES DIFF/ PLT) eosinophils 1.5 % normal Not Available [facility] [address] [place], [address], 01/08/2025 15:18:27 01/06/20 25 01/08/2025 CBC (INCL UDES DIFF/ PLT) basophils 0.9 % normal Not Available [facility] [address] [place], [address], 01/08/2025 15:18:27 01/06/20 25 01/08/2025 KISHA TIN ferritin 121 NG/mL 24-380 normal Not Available [facility] [address] [place], [address], 01/08/2025 15:18:28 01/06/20 25 01/08/2025 VITAM IN B12/F OLATE , SERUM PANEL vitamin B12 1696 pg/mL 200-11 00 high Not Available [facility] [address] [place], [address], 01/08/2025 15:18:29 01/06/20 25 01/08/2025 VITAM IN B12/F OLATE , SERUM PANEL folate, serum >24.0 NG/mL normal Refer ence Range Low: <3.4 Borde rline : 3.4-5 .4 Chanda l: >5.4 Not Available [facility] [address] [place], [address], 01/08/2025 15:18:29 01/06/2001/08/2025 TSH W/REF LIN TO FT4 TSH w/reflex to FT4 2.74 mIU/L 0.40-4 .50 normal Not Available [facility] [address] [place], [address], 01/08/2025 15:18:29 01/15/20 25 01/14/2025 urina lysis , dipst ick specific gravity 1.015 1.005 - 1.030 Not Available [facility] - In Office Orders (For Internal Use Only) [address] [place], [address], 01/14/2025 16:18:58 01/15/20 25 01/14/2025 urina lysis , dipst ick pH 6.5 5.0 - 9.0 Not Available [facility] - In Office Orders (For Internal Use Only) [address] [place], [address], 01/14/2025 16:18:58 01/15/20 25 01/14/2025 urina lysis , dipst ick leukocytes neg negati ve Not Available [facility] - In Office Orders (For Internal Use Only) [address] [place], [address], 01/14/2025 16:18:58 01/15/20 25 01/14/2025 urina lysis , dipst ick nitrite neg negati ve Not Available [facility] - In Office Orders (For Internal Use Only) [address] [place], [address], 01/14/2025 16:18:58 01/15/20 25 01/14/2025 urina lysis , dipst ick protein (mg/dL) trace negati ve Not Available [facility] - In Office Orders (For Internal Use Only) [address] [place] [address], [address], 01/14/2025 16:18:58 01/15/20 25 01/14/2025 urina lysis , dipst ick glucose (mg/dL) neg normal Not Available [facility] - In Office Orders (For Internal Use Only) [address] [place] [address], [address], 01/14/2025 16:18:58 01/15/20 25 01/14/2025 urina lysis , dipst ick ketones neg negati ve Not Available [facility] - In Office Orders (For Internal Use Only) [address] [place] [address], [address], 01/14/2025 16:18:58 01/15/20 25 01/14/2025 urina lysis , dipst ick urobilinogen (mg/dL) 0.2 0.2 - 1.0 Not Available [facility]g - In Office Orders (For Internal Use Only) [address] [place] [address], [address], 01/14/2025 16:18:58 01/15/20 25 01/14/2025 urina lysis , dipst ick bilirubin neg negati ve Not Available [facility] - In Office Orders (For Internal Use Only) [address] [place] [address], [address], 01/14/2025 16:18:58 01/15/20 25 01/14/2025 urina lysis , dipst ick blood neg negati ve Not Available [facility] - In Office Orders (For Internal Use Only) [address] [place] [address], [address], 01/14/2025 16:18:58 01/15/20 25 01/14/2025 hemog lobin A1C, finge rstic k HbA1C 7.0 Not Available [facility] - In Office Orders (For Internal Use Only) [address] [place], [address], 01/14/2025 16:18:10 01/15/20 25 01/14/2025 hemog lobin A1C, finge rstic k Control positi ve Not Available [facility] - In Office Orders (For Internal Use Only) [address] [facility], [place], [address], 01/14/2025 16:18:10 Result Notes None recorded. Problems Name Problem SNOMED Code Status Onset Date Resolution Date Notes Provider Name and Address Organization Details Recorded Time Does mobilize using cane 918057602 Active 2023 Rosa Maria Shane Fagg DO [address], [address], [place], [address], [place] [facility] [place] 4 13:40:17 Hyperlipi demia 02782729 Active 2023 Rosa Maria Shane Fagg DO [address], [address], [place], [address], [place] 4 13:40:26 History of myocardia l infarctio n 432134968 Active 2023 Rosa Maria Shane Fagg DO [address], [address], [place], [address], [place] 4 13:40:35 Bacterial endocardi tis 973295611 Active 2023 history of 6 weeks meropenem /vanco. completed 09/2023 Rosa Maria Retanain Fagg DO [address], [address], [place], [address], [place] 4 13:41:16 Retroperi toneal hemorrhag e 22347908 Active 2023 Rosa Maria Shane Fagg DO [address], [address], [place], [address], [place] [facility] [place] 4 13:41:35 Hypoglyce kanu due to type 2 diabetes mellitus 238757324594 103 Active 2023 bs 20. has a pj. 11/2023 Rosa Maria Mckeon Acosta Fagg DO [address], [address], [place], [address], [place] 4 13:44:34 At increased risk for falls 960396732 Active 2023 Rosa Maria Mckeon Acosta Fagg DO [address], [address], [place], [address], [place] 4 13:52:40 Decrease in appetite 56855556 Active 2023 Rosa Maria Retanain Fagg DO [address], [address], [place], [address], [place] 4 13:53:21 Abnormal weight loss 237094510 Active 2023 Rosa Maria Retanain Fagg DO [address], [place], [address], [place] 4 13:54:27 Insomnia 076199162 Active 2023 Rosa Maria Retanain Fagg DO [address], [address], [place], [address], [place] 4 14:05:28 Sensorine ural hearing loss of bilateral ears 539033495 Active 2023 Rosa Maria Retanain Fagg DO [address], [address], [place], [address], [place] 4 14:05:32 Benign prostatic hyperplas ia with outflow obstructi on 065808565 Active 2023 Rosa Maria Retanain Fagg DO [address], [place], [address], [place] 4 14:05:35 Diabetic periphera l neuropath y 402968137 Active 2023 Rosa Maria Mckeon Acosta Fagg DO [address], [address], [place], [address], [place] 4 14:05:38 Gout 69780749 Active 2023 Rosa Maria Mckeon Acosta Fagg DO [address], [address], [place], [address], [place] 4 14:05:41 Gastroeso phageal reflux disease 453764565 Active 2023 Rosa Maria Mckeon Acosta Fagg DO [address], [place], [address], [place] 4 23:03:11 Compressi on fracture of thoracic vertebra 266454940420 4 Active 2023 T1, T12 Rosa Maria Mckeon Acosta Fagg DO [address], [place], [address], [place] 4 23:03:54 Degenerat donaldo disorder of macula 794532536 Active 2023 Rosa Maria Mckeon Acosta Fagg DO [address], [place], [address], [place] 4 23:04:31 Anemia in chronic kidney disease 646924726 Active 2023 Rosa Maria Retanain Fagg DO [address], [place], [address], [place] 4 10:21:36 Retention of urine 545438542 Active 2023 Rosa Maria Retanain Fagg DO [address], [place], [address], [place] 4 17:43:15 Seizure 00264759 Active 2023 Rosa Maria Retanain Fagg DO [address], [place], [address], [place] 4 01:06:30 Osteopeni a with high fracture risk 031479829433 101 Active 2023 frax hip score 5.9% Rosa Maria Mckeon Acosta Fagg DO [address], [place], [address], [place] 4 14:23:46 Left ventricul ar hypertrop hy 21753318 Active 2023 Rosa Maria Mckeon Acosta Fagg DO [address], [place], [address], [place] 4 14:31:38 Polyneuro james due to diabetes mellitus 61445522 Active 2023 Rosa Maria Mckeon Acosta Fagg DO [address], [place], [address], [place] 4 12:27:36 Chronic combined systolic and diastolic heart failure 514370488986 100 Active 2023 Rosa Maria Mckeon Acosta Fagg DO [address], [place], [address], [place] 4 12:46:48 Paroxysma l atrial fibrillat ion 121054725 Active 2023 Rosa Maria Mckeon Acosta Fagg DO [address], [place], [address], [place] 4 12:47:39 Cervical spondylos is 942501384 Active 2023 Rosa Maria Mckeon Acosta Fagg DO [address], [place], [address], [place] 4 12:47:45 Deficienc y of vitamin D3 267174476 Active 2023 Rosa Maria Retanain Fagg DO [address], [place], [address], [place] 4 02:06:11 Body mass index 20-24 - normal 370935137 Active 2023 Rosa Maria Wolfgg DO [address], [place], [address], [place] 4 02:06:14 Multifact orial gait problem 962435810 Active Gabi Schuster [facility] null, [place] 4 09:59:09 Syncope 780500488 Active Gabi Schuster [facility]ABILITATION LIAISON null, [place] 4 09:59:26 Mild memory disturban ce 646058324 Active Nedrownohemi Schuster [facility]ABILITATION LIAISON null, [place] 4 09:59:35 Abnormal gait 24787385 Active 2024 Rosa Maria Wolfgg DO [address], [place], [address], [place] 5 10:16:01 Constipat ion 54382976 Active 2024 Conneaut[place]jermain Wolfgg DO [address], [place], [address], [place] 5 10:19:39 Uncontrol led type 2 diabetes mellitus 349853073 Active 2024 Rosa Mariajermain Wolfgg DO [address], [place], [address], [place] 5 10:29:39 Chronic kidney disease stage 4 141915329 Active 2024 Rosa Mariajermain Shane Fagg DO [address], [place], [address], [place] 5 10:29:43 Mild neurocogn itive disorder 106807762 Active Momo De La Rosa null, [place] 5 16:45:17 Candidias is of skin 21010991 Active 2024 Rosa Maria Mike Shane Fagg DO [address], [place], [address], [place] 16:20:22 Anemia 511145391 Active 2024 Rosa Maria Shane Fagg DO [address], [place], [address], [place] 23:40:52 Problem Notes Documentation Provider Name and Address Organization Details Recorded Time Cardiology Note : [address] [place] [address] , Appointment Date: 10/26/2024Patient's First Name: Alok Patient's Last Name: Brooke Date of : 1940 Provider: Rosalva Duncan Reason/DateNone recorded 10/26/2024 - 02:20PM - [id number] Problems:Reviewed Problems 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 completed 09/2023 Uncontrolled type 2 diabetes mellitus - Onset: 2024 Diabetic peripheral neuropathy - Onset: 04/20/2024 Deficiency of vitamin D3 - Onset: 06/22/2024 Hyperlipidemia - Onset: 04/20/2024 Gout - Onset: 04/20/2024 Anemia in chronic kidney disease - Onset: 04/30/2024 Mild memory disturbance Insomnia - Onset: 04/20/2024 Polyneuropathy due to diabetes mellitus - Onset: 06/16/2024 Degenerative disorder of macula - Onset: 04/26/2024 Sensorineural hearing loss of bilateral ears - Onset: 04/20/2024 Paroxysmal atrial fibrillation - Onset: 06/16/2024 Chronic combined systolic and diastolic heart failure - Onset: 06/16/2024 Left ventricular hypertrophy - Onset: 06/06/2024 Retroperitoneal hemorrhage - Onset: 04/20/2024 Gastroesophageal reflux disease - Onset: 04/26/2024 Constipation - Onset: 2024 Chronic kidney disease stage 4 - Onset: 2024 Benign prostatic hyperplasia with outflow obstruction - Onset: 04/20/2024 Cervical spondylosis - Onset: 06/16/2024 Syncope Seizure - Onset: 05/30/2024 Abnormal gait - Onset: 2024 Multifactorial gait problem Abnormal weight loss - Onset: 04/20/2024 Decrease in appetite - Onset: 04/20/2024 Retention of urine - Onset: 05/11/2024 Compression fracture of thoracic vertebra - Onset: 04/26/2024 - T1, T12 History of myocardial infarction - Onset: 04/20/2024 At increased risk for falls - Onset: 04/20/2024 Body mass index 20-24 - normal - Onset: 06/22/2024 Does mobilize using cane - Onset: 04/20/2024 Hypoglycemia due to type 2 diabetes mellitus - Onset: 04/20/2024 - bs 20. has a pj. 11/2023 Osteopenia with high fracture risk - Onset: 06/06/2024 - frax hip score 5.9% Allergies: Allergies not reviewed (last reviewed 10/11/2024) NKDA Medications: Reviewed Medications NameDate Source Accu-Chek Guide test stripsUSE 1 STRIP TO TEST DAILY05/19/24 filled surescripts allopurinoL 100 mg tabletTake 1 tablet(s) every day by oral route.10/05/24 filled surescripts aspirin 81 mg tablet,delayed releaseTake 1 tablet(s) every day by oral route.09/01/24 entered Gabi Schuster Cma atorvastatin 40 mg tabletTake 1 tablet(s) every day by oral route.10/05/24 filled surescripts cholecalciferol (vitamin D3) 1,250 mcg (50,000 unit) capsuleTAKE 1 CAPSULE BY MOUTH 1 TIME A WEEK, start started Ivette Rosario cyanocobalamin (vitamin B-12) 1,000 mcg capsuleTake 1 capsule(s) every day by oral route.04/20/24 entered Ivette Rosario DULoxetine 30 mg capsule,delayed releaseTAKE 1 CAPSULE BY MOUTH EVERY DAY10/19/24 filled surescripts Fish OiL 1,000 mg (120 mg-180 mg) capsuleTake 2 capsule(s) every day by oral route.04/20/24 entered Ivette Rosario iron 50 mg iron tabletTake 1 tablet(s) every day by oral route.04/20/24 entered Ivette Gabriel U-100 Insulin 100 unit/mL (3 mL) subcutaneous pen44 units daily sq. may increase to 50 units if aqlerxsm89/21/25 prescribed Rosa Maria Hartman DO Metamucil Fiber Thin 2.5 gram oral waferTake 1 wafer(s) every day by oral route.10/05/24 prescribed Rosa Maria Hartman DO metoprolol succinate ER 50 mg tablet,extended release 24 hrTake 1 tablet(s) every day by oral route for 90 days.10/05/24 filled surescripts Multi Vitamin1 TABLET DAILY04/20/24 entered Ivette Rosario polyethylene glycoL 3350 17 gram/dose oral powderMIX 17 GRAMS INTO 8 OZ OF FLUID AND TAKE BY MOUTH DAILY XFDBCB68/04/24 filled surescripts pregabalin 75 mg capsuleTake 1 capsule(s) twice a day by oral route.10/05/24 prescribed Rosa Maria Hartman DO PreserVision AREDS1 GELCAP TWICE DAILY04/20/24 entered Ivette Rosario tamsulosin 0.4 mg capsuleTake 2 capsule(s) every day by oral route.10/05/24 prescribed Rosa Maria Hartman DO tiZANidine 2 mg tabletTAKE 1 TABLET BY MOUTH 2 TIMES A DAY TBEUNZ35/21/25 filled surescripts traMADoL 50 mg tabletTAKE 1 TABLET BY MOUTH 3 TIMES A DAY XQDDGA27/21/25 filled surescripts traZODone 100 mg tabletTake 1 tablet(s) every day by oral route in the evening.10/05/24 filled surescripts ZyrTEC 10 mg tabletTake 1 tablet(s) twice a day by oral route.06/02/24 entered Momo De La Rosa 10/26/24 PT VERIFIED CURRENT MEDICATION LIST. BL Family History:Family History not reviewed (last reviewed 10/11/2024) Mother - Heart disease - Malignant tumor of pancreas ( age: 93) Father - Heart disease - Acute respiratory failure ( age: 87) Social History:Social History not reviewed (last reviewed 10/11/2024) Substance UseDo you or have you ever smoked tobacco?: Former smokerHow many years have you smoked tobacco?: 15What is your current pack years?: Less than or equal to 10 Pack YearsHow much tobacco do you smoke?: 1 pack per weekWhen did you quit smoking?: 16+ years since last cigaretteDo you or have you ever used any other forms of tobacco or nicotine?: NoDo you or have you ever used e-cigarettes or vape?: Never used electronic cigarettesDo you or have you ever used smokeless tobacco?: Never used smokeless tobaccoWhat was the date of your most recent tobacco screening?: 10/19/2024Has tobacco cessation counseling been provided?: NoWhat is your level of alcohol consumption?: NoneDo you use any illicit or recreational drugs?: NoWhat is your level of caffeine consumption?: OccasionalAdvance DirectiveDo you have an advance directive?: YesMarriage and SexualityWhat is your relationship status?: MarriedHow many children do you have?: 2Education and OccupationWhat is the highest grade or level of school you have completed or the highest degree you have received?: Some college, no degreeAre you currently in school?: NoAre you currently employed?: No (Notes: [facility] [employer])Travel & IDOC Screening Lite0) Information Provided by :: [email or web address]) Does the Patient/Caregiver/Family report the PATIENT having any of these NEW symptoms such as Cough?: Yes1b) Does the Patient/Caregiver/Family report the PATIENT having any of these NEW symptoms such as Diarrhea?: No1c) Does the Patient/Caregiver/Family report the PATIENT having any of these NEW symptoms such as Fever/chills?: No1d) Does the Patient/Caregiver/Family report the PATIENT having any of these NEW symptoms such as Nasal Congestion/Runny Nose?: No1e) Does the Patient/Caregiver/Family report the PATIENT having any of these NEW symptoms such as Respiratory distress (acute)?: No1f) Does the Patient/Caregiver/Family report the PATIENT having any of these NEW symptoms such as Rash?: No1g) Does the Patient/Caregiver/Family report the PATIENT having any OTHER NEW symptoms (list)? If no NEW symptoms, enter No : Sore keqmrv0s) Have you had any known exposure to anyone with a contagious disease or do you think you HAVE this disease :: Unknown3) Have you traveled outside of the [place] in the last 30 days?: No4a) To where did travel occur ? International Travel except [place]: NoSDOHDo you want help finding or keeping work or a job?: NoDo you want help with school or training? For example, starting or completing job training or getting a high school diploma, GED, or equivalent?: NoIn the last 12 months did you ever eat less than you felt you should because there wasn t enough money for food?: NoIn the past 12 months has the [employer], oil, or water [employer] threatened to shut off services in your home?: NoIn the last 12 months did you skip medications to save money?: NoIn the last 12 months, was there a time when you needed to see a doctor but could not because of cost?: NoDo you often feel lonely?: NoAre you worried that in the next 2 months you may not have stable housing?: NoIn the last 12 months, have you ever had to go without health care because you didn t have a way to get there?: NoDo you feel physically and emotionally unsafe where you currently live?: NoGender Identity and LGBTQ IdentityAssigned sex at : MalePronouns: he/himSexual orientation: Straight or heterosexualSurgical HistorySurgical History not reviewed (last reviewed 10/11/2024) Transcatheter aortic valve implantation - 01/13/2024 - [place]. transfemoral Cardiac catheterization - 12/15/2023 - LV ef 60%. severe aortic stenosis. mild ot moderate CAD Administration of prophylactic antibiotic for subacute bacterial endocarditis - 10/24/2023 - s/p meropenem and vancomycin. completed 10/24/23 for 6 weeks. Interventional Radiology - 08/29/2023 - spontaneous left retroperitoneal bleed with neg IR angiogram. s/p 4 rbc transfusions Injection into lumbar epidural space - 07/04/2023 - bilateral L4 injection. Dr. Mcmullen. [place] Tooth extraction - 09/29/2019 - 6 teeth Colonoscopy - 09/29/2018 - [place] Lumbar spinal fusion - 09/29/2013 - posterior fixation at l4- s1. dr. garcia in [place] Laser assisted in situ keratomileusis - 09/29/1999 - lasik Cholecystectomy - 09/29/1999 - laproscopic Abdominal wall hernia procedure - 09/29/1992 - with mesh. left side Repair of multiple tears of rotator cuff of left shoulder - 09/29/1984 - left Vasectomy - 09/29/1974 Tonsillectomy - 09/29/1944 Past Medical HistoryPast Medical History not reviewed (last reviewed 07/16/2024) heart attack ([place]):Y-Aug 2023 valvular heart disease:Y-s/p TAVR acid reflux/GERD:Y diabetes mellitus:Y History of Present Illness:84 yo M history of CAD (mild-moderate of 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 I met him 03/2024, he had recently moved from [place]. He was not aware of a history of atrial fibrillation but chart review mentioned so monitor was ordered. Denies any recent dyspnea, chest pain, syncope, LE edema, palpitations. HE does check his BP daily, 120/70s. Quit tobacco 50 years ago, No regular ETOH Studies:1. TTE 01/2024- EF 65%, indeterminate diastolic function, normal RV size with low normal function, bioprosthetic AV with appropriate function2. Monitor 05/2024- 52-194, avg 72, 16 SVT with longest 16 beats3. TTE 05/2024- EF 50-55%, conc LVH, stage I DD, RV normal size/function, TAVR valve not well seen with appropriate velocitiesReview of Systems:ROS as noted in the HPIVitals Ht: 5 ft 10 in (177.8 cm)10/26/2024 02:19 pm Wt: 173 lbs (78.47 kg)10/26/2024 02:24 pm BMI: 24.801 02:24 pm BP: 130/72 sitting L arm10/26/2024 02:27 pm Pulse: 64 bpm10/26/2024 02:27 pm Physical ExamConstitutional:General Appearance: well-nourished, well-developed, and appears stated age. Level of Distress: comfortable. Psychiatric:Mental Status: alert and normal affect. Orientation: oriented to time, place, and person. Neck:Carotid Arteries: bilateral normal upstroke and no bruits. Jugular Veins: normal jugular venous pressure. Lungs:Respiratory Effort: unlabored. Auscultation: no wheezing or rales and clear. Cardiovascular:Rate And Rhythm: regular. Heart Sounds: normal S1 and S2. Systolic Murmur: not heard. Diastolic Murmur: not heard. Extremities: no edema. Peripheral Pulses:Radial Pulse: normal. Musculoskeletal:Inspection: no erythema. Neurologic:Gait: normal gait.Assessment/Plan1. Coronary ihfqmgiocpviqgcb-xsro-wveentsi disease on [facility] 12/2023-continue ASA, bnnhytL46.10: Atherosclerotic heart disease of [place] coronary artery without angina pectoris 2. History of aortic valve replacement-12/2023 26 mm Swift Avani in [place]-antibiotic auyyklppjkzS06.4: Presence of other heart-valve replacement 3. Essential hypertension-controlled, goal <130/80-continue Metoprolol succinate 50 mgI10: Essential (primary) hypertension HIGH BLOOD PRESSURE: CARE INSTRUCTIONS LEARNING ABOUT HIGH BLOOD PRESSURE 4. Hyperlipidemia-08/2024 LDL 44-continue SatscxmogshjX76.5: Hyperlipidemia, unspecified 5. History of ewwghcrakaueN95.79: Personal history of other diseases of the circulatory system Return to Office MESERET CORBIN NP for Established Patient 15 at [facility] on 12/13/2024 at 01:15 PM Pia Thomason MD for Established Patient 20 at [email or web address] on 12/22/2024 at 01:40 PM Rosa Maria Hartman DO for Short Appt 20 mins at [facility]DIX[facility]DOC on 01/14/2025 at 03:30 PM to see Tiffany Jackson MD at [facility]KOK[facility]DOC on or around 04/25/2025 Sincerely, Electronically Signed by: MD Momo DUNCAN IN [facility] 10/27/2024 09:48:37 Stacker Operator Consult Note : [facility] [address] [place] [phone] , Appointment Date: 10/26/2024Patient's First Name: Alok Patient's Last Name: Brooke Date of : 1940 Provider: Tiffany Jackson MDEncountmanuelito Reason/DateNone recorded 10/26/2024 - 02:20PM - [email or web address] Problems:Reviewed Problems 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 completed 09/2023 Uncontrolled type 2 diabetes mellitus - Onset: 2024 Diabetic peripheral neuropathy - Onset: 04/20/2024 Deficiency of vitamin D3 - Onset: 06/22/2024 Hyperlipidemia - Onset: 04/20/2024 Gout - Onset: 04/20/2024 Anemia in chronic kidney disease - Onset: 04/30/2024 Mild memory disturbance Insomnia - Onset: 04/20/2024 Polyneuropathy due to diabetes mellitus - Onset: 06/16/2024 Degenerative disorder of macula - Onset: 04/26/2024 Sensorineural hearing loss of bilateral ears - Onset: 04/20/2024 Paroxysmal atrial fibrillation - Onset: 06/16/2024 Chronic combined systolic and diastolic heart failure - Onset: 06/16/2024 Left ventricular hypertrophy - Onset: 06/06/2024 Retroperitoneal hemorrhage - Onset: 04/20/2024 Gastroesophageal reflux disease - Onset: 04/26/2024 Constipation - Onset: 2024 Chronic kidney disease stage 4 - Onset: 2024 Benign prostatic hyperplasia with outflow obstruction - Onset: 04/20/2024 Cervical spondylosis - Onset: 06/16/2024 Syncope Seizure - Onset: 05/30/2024 Abnormal gait - Onset: 2024 Multifactorial gait problem Abnormal weight loss - Onset: 04/20/2024 Decrease in appetite - Onset: 04/20/2024 Retention of urine - Onset: 05/11/2024 Compression fracture of thoracic vertebra - Onset: 04/26/2024 - T1, T12 History of myocardial infarction - Onset: 04/20/2024 At increased risk for falls - Onset: 04/20/2024 Body mass index 20-24 - normal - Onset: 06/22/2024 Does mobilize using cane - Onset: 04/20/2024 Hypoglycemia due to type 2 diabetes mellitus - Onset: 04/20/2024 - bs 20. has a pj. 11/2023 Osteopenia with high fracture risk - Onset: 06/06/2024 - frax hip score 5.9% Allergies: Allergies not reviewed (last reviewed 10/11/2024) NKDA Medications: Reviewed Medications NameDate Source Accu-Chek Guide test stripsUSE 1 STRIP TO TEST DAILY05/19/24 filled surescripts allopurinoL 100 mg tabletTake 1 tablet(s) every day by oral route.10/05/24 filled surescripts aspirin 81 mg tablet,delayed releaseTake 1 tablet(s) every day by oral route.09/01/24 entered Gabi Schuster Cma atorvastatin 40 mg tabletTake 1 tablet(s) every day by oral route.10/05/24 filled surescripts cholecalciferol (vitamin D3) 1,250 mcg (50,000 unit) capsuleTAKE 1 CAPSULE BY MOUTH 1 TIME A WEEK, start started Ivette Rosario cyanocobalamin (vitamin B-12) 1,000 mcg capsuleTake 1 capsule(s) every day by oral route.04/20/24 entered Ivette Rosario DULoxetine 30 mg capsule,delayed releaseTAKE 1 CAPSULE BY MOUTH EVERY DAY10/19/24 filled surescripts Fish OiL 1,000 mg (120 mg-180 mg) capsuleTake 2 capsule(s) every day by oral route.04/20/24 entered Ivette Rosario iron 50 mg iron tabletTake 1 tablet(s) every day by oral route.04/20/24 entered Ivette Gabriel U-100 Insulin 100 unit/mL (3 mL) subcutaneous pen44 units daily sq. may increase to 50 units if tvnyqrkz18/21/25 prescribed Rosa Maria Hartman DO Metamucil Fiber Thin 2.5 gram oral waferTake 1 wafer(s) every day by oral route.10/05/24 prescribed Rosa Maria Hartman DO metoprolol succinate ER 50 mg tablet,extended release 24 hrTake 1 tablet(s) every day by oral route for 90 days.10/05/24 filled surescripts Multi Vitamin1 TABLET DAILY04/20/24 entered Ivette Rosario polyethylene glycoL 3350 17 gram/dose oral powderMIX 17 GRAMS INTO 8 OZ OF FLUID AND TAKE BY MOUTH DAILY VDZXMD12/04/24 filled surescripts pregabalin 75 mg capsuleTake 1 capsule(s) twice a day by oral route.10/05/24 prescribed Rosa Maria Hartman DO PreserVision AREDS1 GELCAP TWICE DAILY04/20/24 entered Ivette Rosario tamsulosin 0.4 mg capsuleTake 2 capsule(s) every day by oral route.10/05/24 prescribed Rosa Maria Hartman DO tiZANidine 2 mg tabletTAKE 1 TABLET BY MOUTH 2 TIMES A DAY FFLANI25/21/25 filled surescripts traMADoL 50 mg tabletTAKE 1 TABLET BY MOUTH 3 TIMES A DAY KBNERF80/21/25 filled surescripts traZODone 100 mg tabletTake 1 tablet(s) every day by oral route in the evening.10/05/24 filled surescripts ZyrTEC 10 mg tabletTake 1 tablet(s) twice a day by oral route.06/02/24 entered Momo De La Rosa 10/26/24 PT VERIFIED CURRENT MEDICATION LIST. BL Family History:Family History not reviewed (last reviewed 10/11/2024) Mother - Heart disease - Malignant tumor of pancreas ( age: 93) Father - Heart disease - Acute respiratory failure ( age: 87) Social History:Social History not reviewed (last reviewed 10/11/2024) Substance UseDo you or have you ever smoked tobacco?: Former smokerHow many years have you smoked tobacco?: 15What is your current pack years?: Less than or equal to 10 Pack YearsHow much tobacco do you smoke?: 1 pack per weekWhen did you quit smoking?: 16+ years since last cigaretteDo you or have you ever used any other forms of tobacco or nicotine?: NoDo you or have you ever used e-cigarettes or vape?: Never used electronic cigarettesDo you or have you ever used smokeless tobacco?: Never used smokeless tobaccoWhat was the date of your most recent tobacco screening?: 10/19/2024Has tobacco cessation counseling been provided?: NoWhat is your level of alcohol consumption?: NoneDo you use any illicit or recreational drugs?: NoWhat is your level of caffeine consumption?: OccasionalAdvance DirectiveDo you have an advance directive?: YesMarriage and SexualityWhat is your relationship status?: MarriedHow many children do you have?: 2Education and OccupationWhat is the highest grade or level of school you have completed or the highest degree you have received?: Some college, no degreeAre you currently in school?: NoAre you currently employed?: No (Notes: [facility] [employer])Travel & IDOC Screening Lite0) Information Provided by :: [email or web address]) Does the Patient/Caregiver/Family report the PATIENT having any of these NEW symptoms such as Cough?: Yes1b) Does the Patient/Caregiver/Family report the PATIENT having any of these NEW symptoms such as Diarrhea?: No1c) Does the Patient/Caregiver/Family report the PATIENT having any of these NEW symptoms such as Fever/chills?: No1d) Does the Patient/Caregiver/Family report the PATIENT having any of these NEW symptoms such as Nasal Congestion/Runny Nose?: No1e) Does the Patient/Caregiver/Family report the PATIENT having any of these NEW symptoms such as Respiratory distress (acute)?: No1f) Does the Patient/Caregiver/Family report the PATIENT having any of these NEW symptoms such as Rash?: No1g) Does the Patient/Caregiver/Family report the PATIENT having any OTHER NEW symptoms (list)? If no NEW symptoms, enter No : Sore vekdvq1f) Have you had any known exposure to anyone with a contagious disease or do you think you HAVE this disease :: Unknown3) Have you traveled outside of the [place] in the last 30 days?: No4a) To where did travel occur ? International Travel except [place]: NoSDOHDo you want help finding or keeping work or a job?: NoDo you want help with school or training? For example, starting or completing job training or getting a high school diploma, GED, or equivalent?: NoIn the last 12 months did you ever eat less than you felt you should because there wasn t enough money for food?: NoIn the past 12 months has the [employer], gas, oil, or water [employer] threatened to shut off services in your home?: NoIn the last 12 months did you skip medications to save money?: NoIn the last 12 months, was there a time when you needed to see a doctor but could not because of cost?: NoDo you often feel lonely?: NoAre you worried that in the next 2 months you may not have stable housing?: NoIn the last 12 months, have you ever had to go without health care because you didn t have a way to get there?: NoDo you feel physically and emotionally unsafe where you currently live?: NoGender Identity and LGBTQ IdentityAssigned sex at : MalePronouns: he/himSexual orientation: Straight or heterosexualSurgical HistorySurgical History not reviewed (last reviewed 10/11/2024) Transcatheter aortic valve implantation - 01/13/2024 - [place]. transfemoral Cardiac catheterization - 12/15/2023 - LV ef 60%. severe aortic stenosis. mild ot moderate CAD Administration of prophylactic antibiotic for subacute bacterial endocarditis - 10/24/2023 - s/p meropenem and vancomycin. completed 10/24/23 for 6 weeks. Interventional Radiology - 08/29/2023 - spontaneous left retroperitoneal bleed with neg IR angiogram. s/p 4 rbc transfusions Injection into lumbar epidural space - 07/04/2023 - bilateral L4 injection. Dr. Mcmullen. [place] Tooth extraction - 09/29/2019 - 6 teeth Colonoscopy - 09/29/2018 - [place] Lumbar spinal fusion - 09/29/2013 - posterior fixation at l4- s1. dr. garcia in [place] Laser assisted in situ keratomileusis - 09/29/1999 - [place] Cholecystectomy - 09/29/1999 - laproscopic Abdominal wall hernia procedure - 09/29/1992 - with mesh. left side Repair of multiple tears of rotator cuff of left shoulder - 09/29/1984 - left Vasectomy - 09/29/1974 Tonsillectomy - 09/29/1944 Past Medical HistoryPast Medical History not reviewed (last reviewed 07/16/2024) heart attack ([place]):Y-Aug 2023 valvular heart disease:Y-s/p TAVR acid reflux/GERD:Y diabetes mellitus:Y History of Present Illness:84 yo M history of CAD (mild-moderate of 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 I met him 03/2024, he had recently moved from [place]. He was not aware of a history of atrial fibrillation but chart review mentioned so monitor was ordered. Denies any recent dyspnea, chest pain, syncope, LE edema, palpitations. HE does check his BP daily, 120/70s. Quit tobacco 50 years ago, No regular ETOH Studies:1. TTE 01/2024- EF 65%, indeterminate diastolic function, normal RV size with low normal function, bioprosthetic AV with appropriate function2. Monitor 05/2024- 52-194, avg 72, 16 SVT with longest 16 beats3. TTE 05/2024- EF 50-55%, conc LVH, stage I DD, RV normal size/function, TAVR valve not well seen with appropriate velocitiesReview of Systems:ROS as noted in the HPIVitals Ht: 5 ft 10 in (177.8 cm)10/26/2024 02:19 pm Wt: 173 lbs (78.47 kg)10/26/2024 02:24 pm BMI: 24. 02:24 pm BP: 130/72 sitting L arm10/26/2024 02:27 pm Pulse: 64 bpm10/26/2024 02:27 pm Physical ExamConstitutional:General Appearance: well-nourished, well-developed, and appears stated age. Level of Distress: comfortable. Psychiatric:Mental Status: alert and normal affect. Orientation: oriented to time, place, and person. Neck:Carotid Arteries: bilateral normal upstroke and no bruits. Jugular Veins: normal jugular venous pressure. Lungs:Respiratory Effort: unlabored. Auscultation: no wheezing or rales and clear. Cardiovascular:Rate And Rhythm: regular. Heart Sounds: normal S1 and S2. Systolic Murmur: not heard. Diastolic Murmur: not heard. Extremities: no edema. Peripheral Pulses:Radial Pulse: normal. Musculoskeletal:Inspection: no erythema. Neurologic:Gait: normal gait.Assessment/Plan1. Coronary gwkrsntwcwunuvde-aplk-myrotokr disease on [facility] 12/2023-continue ASA, qcijkuG75.10: Atherosclerotic heart disease of [place] coronary artery without angina pectoris 2. History of aortic valve replacement-12/2023 26 mm Swift Avani in [place]-antibiotic zmafinucronD24.4: Presence of other heart-valve replacement 3. Essential hypertension-controlled, goal <130/80-continue Metoprolol succinate 50 mgI10: Essential (primary) hypertension HIGH BLOOD PRESSURE: CARE INSTRUCTIONS LEARNING ABOUT HIGH BLOOD PRESSURE 4. Hyperlipidemia-08/2024 LDL 44-continue NyportaeiyhkC55.5: Hyperlipidemia, unspecified 5. History of vqjkbudlodueN03.79: Personal history of other diseases of the circulatory system Return to Office MESERET CORBIN NP for Established Patient 15 at [facility] on 12/13/2024 at 01:15 PM Pia Thomason MD for Established Patient 20 at [email or web address] on 12/22/2024 at 01:40 PM Rosa Maria Hartman DO for Short Appt 20 mins at [facility]DOC on 01/14/2025 at 03:30 PM to see Tiffany Jackson MD at [facility] on or around 04/25/2025 Sincerely, Electronically Signed by: MD Drea DUNCAN RN [facility] 10/27/2024 06:34:40 Procedures Surgical History Date Name Laterality Status Provider Name and Address Organization Details Recorded Time 01/13/20 24 transcatheter aortic valve implantation completed Rosa Maria Wolfgg DO [address] [place] [address], [address], [facility] [place], [address], [facility] 04/20/2024 13:39:12 12/15/19 cardiac catheterization completed Rosa Maria Wolfgg DO [address], [address], [facility] [place], [address], [facility] 04/20/2024 13:43:11 10/24/19 24 administration of prophylactic antibiotic for subacute bacterial endocarditis completed Rosa Maria Wolfgg DO [address], [address], [facility] [place], [address], [facility] 04/20/2024 13:39:55 08/29/20 Interventional Radiology completed Rosa Maria Wolfgg DO [address], [address], [place], [address], [facility] 04/20/2024 13:42:44 07/04/20 injection into lumbar epidural space completed Rosa Maria Wolfgg DO [address], [address], [place], [address], [facility] 04/26/2024 23:06:12 09/29/19 20 tooth extraction completed Rosa Maria Retanain Fagg DO [address], [address], [place], [address], [place] [facility] 06/16/2024 12:34:06 09/29/19 19 Colonoscopy completed Rosa Maria Retanain Fagg DO [address], [address], [place], [address], [place] [facility] 06/16/2024 12:34:57 09/29/19 14 lumbar spinal fusion completed Rosa Maria Retanain Fagg DO [address], [address], [place], [address], [place] [facility] 06/16/2024 12:29:32 09/29/19 00 Cholecystectomy completed Rosa Maria Retanain Fagg DO [address], [address], [place], [address], [place] - [facility] 06/16/2024 12:32:32 09/29/19 00 laser assisted in situ keratomileusis completed Rosa Maria Retanain Fagg DO [address], [address], [place], [address], [place] - [facility] 06/16/2024 12:32:24 09/29/18 93 abdominal wall hernia procedure completed Rosa Maria Retanain Fagg DO [address], [address], [place], [address], [place] - [facility] 06/16/2024 12:36:31 09/29/18 85 repair of multiple tears of rotator cuff of left shoulder completed Rosa Maria Retanain Fagg DO [address], [address], [place], [address], [place] - [facility] 06/16/2024 12:33:13 09/29/18 75 vasectomy completed Rosa Maria Retanain Fagg DO [address], [address], [place], [address], [place] - [facility] 06/16/2024 12:33:44 09/29/18 45 tonsillectomy completed Rosa Maria Shane Fagg DO [address], [place], [address], [place] [facility] [place] 06/16/2024 12:33:32 Imaging Results None recorded. Procedure Notes None recorded. Medical Equipment None Reported. Allergies Allergen ID Allergen Name Allergen Category Reaction Reaction Severity Criticality Documentation Date Start Date Code Code System Note Provider Name and Address Organization Details Recorded Time [id number] morphine medicatio n itching mild low 04/20/2024 7052 RxNorm Momo [place], [place] - [facility] [place] 10:14:23 Medications Name Sig Start Date Stop Date Status Note LastModified by Organization Details LastModified Time atorvasta tin 40 mg tablet Take 1 tablet every day by oral route. active Not Available Not Available No t Available atorvasta tin 20 mg tablet Take 1 tablet every day by oral route. 04/20 completed Not Available Not Available Not Available tizanidin e 2 mg tablet TAKE 1 TABLET BY MOUTH 2 TIMES A DAY NEEDED active Not Available Not Available No t Available azithromy zack 250 mg tablet TAKE 2 TABLETS BY MOUTH ON DAY 1, THEN 1 TABLET DAILY ON DAYS 2-5 12/22 completed Not Available Not Available Not Available metoprolo l succinate ER 50 mg tablet,ex tended release 24 hr Take 1 tablet every day by oral route for 90 days. active Not Available Not Available No t Available iron 50 mg iron tablet Take 1 tablet every day by oral route. active Not Available Not Available No t Available Zyrtec 10 mg tablet Take 1 tablet twice a day by oral route. active Not Available Not Available No t Available allopurin ol 100 mg tablet TAKE 1 TABLET BY MOUTH EVERY DAY active Not Available Not Available No t Available omeprazol e 40 mg capsule,d elayed release Take 1 capsule every day by oral route in the morning, for as needed.. 10/05 completed not taking Not Available Not Available Not Available aspirin 81 mg tablet,de layed release Take 1 tablet every day by oral route. active Not Available Not Available No t Available tramadol 50 mg tablet TAKE 1 TABLET BY MOUTH 3 TIMES A DAY NEEDED active rare use. not taking currentl y. Not Available Not Available Not Available tamsulosi n 0.4 mg capsule TAKE 2 CAPSULES BY MOUTH EVERY DAY active Not Available Not Available No t Available trazodone 100 mg tablet Take 1 tablet every day by oral route in the evening. active Not Available Not Available No t Available metformin 1,000 mg tablet TAKE 1 TABLET BY MOUTH 2 TIMES A DAY 05/18 completed Not Available Not Available Not Available allopurin ol 300 mg tablet TAKE 1/2 TABLET BY MOUTH EVERY DAY 10/05 completed Not Available Not Available Not Available polyethyl ruth glycol 3350 17 gram/dose oral powder MIX 17 GRAMS INTO 8 OZ OF FLUID AND TAKE BY MOUTH DAILY NEEDED active Not Available Not Available No t Available ondansetr on 4 mg disintegr ating tablet DISSOLVE 1 TABLET IN MOUTH EVERY 8 HOURS NEEDED FOR NAUSEA AND VOMITING active Not Available Not Available No t Available clotrimaz ole 1 % topical cream APPLY TO THE AFFECTED AND SURROUND ING AREAS OF SKIN BY TOPICAL ROUTE 2 TIMES PER DAY IN THE MORNING AND EVENING as needed to groin. 2024 active Not Available Not Available Not Avai lable amoxicill in 875 mg-potass ium clavulana te 125 mg tablet TAKE 1 TABLET BY MOUTH 2 TIMES A DAY (WITH BREAKFAS T AND WITH EVENING MEAL) FOR 7 DAYS 12/22 completed Not Available Not Available Not Available metformin ER 750 mg tablet,ex tended release 24 hr TAKE 1 TABLET BY MOUTH EVERY DAY 10/05 completed stopped Not Available Not Available Not Available memantine 10 mg tablet TAKE 1 TABLET BY MOUTH 2 TIMES A DAY active Not Available Not Available No t Available memantine 5 mg tablet TAKE 1 TABLET BY MOUTH DAILY FOR 1 WEEK. THEN 1 TAB TWICE DAILY FOR 1 WEEK, THEN 2 TABS IN THE MORNING AND 1 TAB IN THE EVENING FOR 1 WEEK. active Not Available Not Available No t Available duloxetin e 30 mg capsule,d elayed release TAKE 1 CAPSULE BY MOUTH EVERY DAY active Not Available Not Available No t Available pregabali n 75 mg capsule Take 1 capsule twice a day by oral route. 2024 active Not Available Not Available Not Avai lable melatonin 10mg one each night 04/27 completed Not Available Not Available Not Available omeprazol e 04/27 completed Not Available Not Available Not Available PreserVis ion AREDS 1 GELCAP TWICE DAILY active Not Available Not Available No t Available cholecalc iferol (vitamin D3) 1,250 mcg (50,000 unit) capsule TAKE 1 CAPSULE BY MOUTH 1 TIME A WEEK active Not Available Not Available No t Available Lantus Solostar U-100 Insulin 100 unit/mL (3 mL) subcutane ous pen inject 44 units under the skin daily. may increase to 50 units if directed active Not Available Not Available No t Available Lantus Solostar U-100 Insulin 22 units daily 04/23 completed Not Available Not Available Not Available melatonin 10 mg tablet Take 1 tablet every day by oral route at bedtime. 09/01 completed 09/01/20 24 pt states they are not taking Not Available Not Available Not Available Multi Vitamin 1 TABLET DAILY active Not Available Not Available No t Available Fish Oil 1,000 mg (120 mg-180 mg) capsule Take 2 capsules every day by oral route. active Not Available Not Available No t Available Accu-Chek Guide test strips USE 1 STRIP TO TEST DAILY active Not Available Not Available No t Available cyanocoba dequan (vitamin B-12) 1,000 mcg capsule Take 1 capsule every day by oral route. active Not Available Not Available No t Available metoprolo l succinate ER 50 mg capsule sprinkle, ext. release 24 hr Take 1 capsule every day by oral route. 04/27 completed Not Available Not Available Not Available Metamucil Fiber Thin 2.5 gram oral wafer Take 1 wafer every day by oral route. 2024 active Not Available Not Available Not Avai lable Vitals Date Recorded Body height Body mass index (BMI) Body weight Heart rate Oxygen saturation Oxygen saturation in Arterial blood by Pulse oximetry Systolic blood pressure Diastolic blood pressure Provider Name and Address Organization Details Last Updated DateTime 5 177.8 cm 24.1 kg/m2 15966.5 2 g 61 /min 99 % 99 % 138 mm[Hg] 82 mm[Hg] [place]ette [place] [facility] 5 13:09:54 Date Recorded Body height Body mass index (BMI) Body weight Heart rate Systolic blood pressure Diastolic blood pressure Provider Name and Address Organization Details Last Updated DateTime 5 177.8 cm 24.8 kg/m2 71777.4 8 g 64 /min 130 mm[Hg] 72 mm[Hg] Mirian [place] [facility] 5 14:27:26 Date Recorded Body height Body mass index (BMI) Body weight Provider Name and Address Organization Details Last Updated DateTime 12/13/2024 177.8 cm 23.7 kg/m2 70084.74 g Faustino Velasquez [facility] 12/13/2024 13:01:41 Date Recorded Body height Body mass index (BMI) Body weight Heart rate Systolic blood pressure Diastolic blood pressure Provider Name and Address Organization Details Last Updated DateTime 177.8 cm 25.1 kg/m2 70396.6 6 g 55 /min 124 mm[Hg] 70 mm[Hg] Momo [place] [facility] 13:45:42 Date Recorded Body height Body mass index (BMI) Body weight Heart rate Oxygen saturation Oxygen saturation in Arterial blood by Pulse oximetry Respiratory rate Body weight Systolic blood pressure Diastolic blood pressure Provider Name and Address Organization Details Last Updated DateTime 177.8 cm 37.2 kg/m2 546470. 42 g 67 /min 99 % 99 % 16 /min 33451.0 3 g 120 mm[Hg] 74 mm[Hg] Ivette Ch[place] [facility] 15:47:30 Social History Question Answer Notes LastModified by Organizat ion Details LastModified Time Tobacco Smoking Status Former Smoker Not Available [facility] 01/14/2025 15:29:10 Do You Have An Advance Directive? Yes [email or web address] Information not available 10/26/2024 What Is Your Level Of Caffeine Consumption? Occasional [email or web address] Information not available 12/22/2024 What Is The Highest Grade Or Level Of School You Have Completed Or The Highest Degree You Have Received? [id number] Information not available 06/02/2024 When Did You Quit Smoking? 16+yearssincel astcikaren [email or web address] Information not available 05/18/2024 Are There Any Guns Present In Your Home? Yes [email or web address] Information not available 01/14/2025 Do You Want Help Finding Or Keeping Work Or A Job? No [email or web address] Information not available 04/20/2024 Do You Want Help With School Or Training? For Example, Starting Or Completing Job Training Or Getting A High School Diploma, GED, Or Equivalent? No [email or web address] Information not available 04/20/2024 In The Last 12 Months Did You Ever Eat Less Than You Bozman You Should Because There Wasn t Enough Money For Food? No [email or web address] Information not available 04/20/2024 In The Past 12 Months Has The [employer], Gas, Oil, Or Water [employer] Threatened To Shut Off Services In Your Home? No [email or web address] Information not available 04/20/2024 In The Last 12 Months Did You Skip Medications To Save Money? No [email or web address] Information not available 04/20/2024 In The Last 12 Months, Was There A Time When You Needed To See A Doctor But Could Not Because Of Cost? No [email or web address] Information not available 04/20/2024 Do You Often Feel Lonely? No [email or web address] Information not available 04/20/2024 Are You Worried That In The Next 2 Months You May Not Have Stable Housing? No [email or web address] Information not available 04/20/2024 In The Last 12 Months, Have You Ever Had To Go Without Health Care Because You Didn t Have A Way To Get There? No [email or web address] Information not available 04/20/2024 Do You Feel Physically And Emotionally Unsafe Where You Currently Live? No Information not available 04/20/2024 0) Information Provided By : Patient [email or web address] Information not available 04/20/2024 1a) Does The Patient/Caregiver /Family Report The PATIENT Having Any Of These NEW Symptoms Such As Cough? Yes Information not available 06/22/2024 1b) Does The Patient/Caregiver /Family Report The PATIENT Having Any Of These NEW Symptoms Such As Diarrhea? No [email or web address] Information not available 04/20/2024 1c) Does The Patient/Caregiver /Family Report The PATIENT Having Any Of These NEW Symptoms Such As Fever/chills? No [email or web address] Information not available 04/20/2024 1d) Does The Patient/Caregiver /Family Report The PATIENT Having Any Of These NEW Symptoms Such As Nasal Congestion/Runny Nose? Yes Information not available 12/22/2024 1e) Does The Patient/Caregiver /Family Report The PATIENT Having Any Of These NEW Symptoms Such As Respiratory Distress (acute)? No [email or web address] Information no t available 04/20/2024 1f) Does The Patient/Caregiver /Family Report The PATIENT Having Any Of These NEW Symptoms Such As Rash? No [email or web address] Information not available 04/20/2024 1g) Does The Patient/Caregiver /Family Report The PATIENT Having Any OTHER NEW Symptoms (list)? If No NEW Symptoms, Enter No No Information not available 12/22/2024 2a) Have You Had Any Known Exposure To Anyone With A Contagious Disease Or Do You Think You HAVE This Disease : No Information not available 12/22/2024 2b) Have You Had Any Known Exposure To Anyone With A Contagious Disease Or Do You Think You HAVE This Disease : Covid-19 (SARS CoV-2) No [email or web address] Information not available 01/14/2025 2d) COVID-19 (SARS CoV-2) Exposure Detail : Covid Home Or PCR Positive Test (Last 10 Days) No [email or web address] Information not available 01/14/2025 2e) COVID-19 (SARS CoV-2) Exposure Detail : Exposure To Person With Covid (Last 10 Days) No [email or web address] Information not available 01/14/2025 3) Have You Traveled Outside Of The [place] In The Last 30 Days? No [email or web address] Information not available 04/20/2024 4a) To Where Did Travel Occur ? International Travel Except Ly No [email or web address] Information not available 04/20/2024 4b) To Where Did Travel Occur ? Cruise Ship No [email or web address] Information not available 01/14/2025 What Was The Date Of Your Most Recent Tobacco Screening? 12/22/2024 Information not available 12/22/2024 How Many Children Do You Have? 2 Information not available 06/02/2024 What Is Your Current Pack Years? 10packyears [email or web address] Information not available 06/02/2024 What Is Your Relationship Status? Information not available 06/02/2024 Do You Use Your Seat Belt Or Car Seat Routinely? Yes [email or web address] Information not available 01/14/2025 Do You Have Smoke And Carbon Monoxide Detectors In Your Home? Yes [email or web address] Information not available 01/14/2025 At What Age Did You Start Smoking Tobacco? 1962 [email or web address] Information not available 05/18/2024 Are You Passively Exposed To Smoke? Yes [email or web address] Information no t available 01/14/2025 How Much Tobacco Do You Smoke? 1 PPW [email or web address] Information not available 01/14/2025 Has Tobacco Cessation Counseling Been Provided? No [email or web address] Information not available 04/20/2024 How Many Years Have You Smoked Tobacco? 15 [email or web address] Information not available 05/18/2024 Are You Currently In School? No [email or web address] Information not available 09/01/2024 Sex: Male Functional Status Question Answer Note LastModified by Organizat ion Details LastModified Time Do you use any illicit or recreational drugs? No [email or web address] Information not available 04/20/2024 Do you or have you ever used any other forms of tobacco or nicotine? No [email or web address] Information not available 06/22/2024 What is your level of alcohol consumption? None [email or web address] Information not available 01/14/2025 Do you or have you ever used smokeless tobacco? Never used smokeless tobacco [email or web address] Information not available 04/20/2024 Are you currently employed? No [facility] [employer] Information not available 06/02/2024 Do you or have you ever used e-cigarettes or vape? Never used electronic cigarettes [email or web address] Information not available 04/20/2024 What is your exercise level? Occasional [email or web address] Information not available 01/14/2025 Mental Status None recorded. Family History Relationship Description Onset Age of this Age Resolved Age Notes LastModified by Organization Details LastModified Time Mother Heart disease [email or web address] Not available 2023 14:16:58 Mother Malignant tumor of pancreas 93 [email or web address] Not available 2024 15:29:09 Father Heart disease [email or web address] Not available 2023 14:16:58 Father Acute respiratory failure 87 [email or web address] Not available 2024 15:29:09 Medical History Condition Response diabetes mellitus Y valvular heart disease Y acid reflux/GERD Y heart attack ([place]) Y Immunizations Vaccine Type Date Status Note Provider Nam e and Address Organization Details Recorded Time RSV, recombinant, protein subunit RSVpreF, adjuvant reconstituted, 0.5 mL, PF 4 completed Rosa Maria Hartman DO [address], [place], [address], [place] [facility] 2024 10:04:57 Pneumococcal conjugate PCV21, polysaccharide DDG358 conjugate, PF 4 completed Rosa Maria Retanain Fagg DO [address], [address], [place], [address], [place] [facility] 2024 10:04:57 Tdap 4 completed Rosa Maria Shane Fagg DO [address], [address], [place], [address], [place] [facility] 2024 10:04:57 Influenza, high-dose, trivalent, PF 4 completed Ievtte [place] [facility] 07/02/2024 17:31:02 SARS-COV-2 (COVID-19) vaccine, UNSPECIFIED 3 completed Rosa Maria Shane Fagg DO [address], [address], [place], [address], [place] [facility] 08/28/2024 16:50:29 SARS-COV-2 (COVID-19) vaccine, UNSPECIFIED 3 completed Rosa Maria Retanain Fagg DO [address], [address], [place], [address], [place] [facility] 08/28/2024 16:50:54 Pneumococcal conjugate PCV 13 5 completed Rosa Maria Retanain Fagg DO [address], [address], [place], [address], [place] [facility] 08/28/2024 16:51:15 SARS-COV-2 (COVID-19) vaccine, UNSPECIFIED 1 completed Rosa Maria Retanain Fagg DO [address], [place], [address], [place] [facility] 08/28/2024 16:51:40 SARS-COV-2 (COVID-19) vaccine, UNSPECIFIED 1 completed Rosa Maria Retanain Fagg DO [address], [address], [place], [address], [place] [facility] 08/28/2024 16:52:08 pneumococcal polysaccharide PPV23 7 completed Rosa Maria Wolfgg DO [address], [address], [place], [address], [place] [facility] [place] 08/28/2024 16:52:48 Tdap 2 completed Rosa Maria Shane Fagg DO [address], [address], [place], [address], [place] [facility] [place] 08/28/2024 16:53:02 Past Encounters Encounter ID Performer Location Encounter Start Date Encounter Closed Date Diagnosis/Indication Diagnosis SNOMED-CT Code Diagnosis ICD10 Code Diagnosis Note [id number] Rosa Maria Hartman DO IND_[facility]D IX[facility]DOC [address] [place] [address] 04/20/2024 12:40:36 04/20/2024 15:17:13 Body mass index 20-24 - normal 503170868 Z68.23 Chronic ki dney disease stage 3B 554101336 N18.32 h/o. get records Bacterial endocarditis 008911006 I33.0 h/o 08/2023. s/p meropenem/ vanco x 6 weeks in [place]. Does mobil ize using cane 040115043 Z99.89 M62.81 using cane but very unsteady. at risk of fall. idealy would have walker with seat and breaks to reduce risk of fall. History of myocardial infarction 990476592 I25.2 was in cardiac rehab at [facility]- fax [id number] - [facility]. completed 9 sessions. last session- was about 3 weeks ago- due to moving to [place]. Hyperlipidemia 35370494 E78.5 Retroperit wang hemorrhage 67873332 K68.3 08/2023 s/p ir eval. Chronic di astolic heart failure 764746417 I50.32 ef 60% in 08/2023 Hypoglycem ia due to type 2 diabetes mellitus 0897521593 64068 E11.649 has dexcom 7 Advance care planning 71 2548038 Z71.89 would like his [phone] 20 or daughter Vivien Agarwal to make medical decisions if needed. If prolong his life without pain and functionin justin. would like cpr with good prognosis or ask family. would like intubation /ventilato r up to 2 weeks with good prognosis or ask family. new. *ACP - Patient voluntaril y discussed advance care planning with Rosa Maria Hartman on 04/20/2024 for 16 minutes for an initial discussion . would like his or daughter Vivien Agarwal to make medical decisions if needed. If prolong his life without pain and functionin justin. would like cpr with good prognosis or ask family. would like intubation /ventilato r up to 2 weeks with good prognosis or ask family. new.* Depression screening 171 660269 Z13.31 Syncope 059690166 R55 march 20- at [employer] [employer]- took 1 bite seizing not able to find pulse here- but felt per daughter at the time to be vasovagal. in [place], [place]- on way traveling [place] [facility]- here from [place]. At [facility] risk for falls 509431944 Z91.81 Decrease in appetite 643 67519 R63.0 Abnormal weight loss 267 183835 R63.4 20lb weight loss in last 6 months. Gout 27101266 M10.9 Diabetic p eripheral neuropathy 377586805 E11.40 Benign pro static hyperplasia with outflow obstruction 128586583 N40.1 Insomnia 983249419 G47.0 [facility]. Sensorineu ral hearing loss of bilateral ears 060921402 H90.3 no current hearing aides. Pain of ri ght shoulder joint [id number] 2495892 M25.511 Fall W19.XXXA last week. 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 Discussed proper control of blood sugar and maintainin g a WNL A1c is essential. Discussed daily inspection of feet and to contact a medical profession al with any signs of wounds. Education emphasizin g disease control, proper fitting footwear, self inspection , skin/nail/ callus care and early reporting of foot injuries. Depth-inla y footwear, molded/mod ified orthoses; modified/c ustom footwear, ankle-foot orthoses as needed. Routine follow-up 9 12 week for foot/ activity/ footwear evaluation and callus/mert l care Dystrophia unguium 96950 009 L60.3 Discussed fungal nail condition. Discussed treatment options for maintainan ce and medication use.Discus sed weekly debulking of pathology with a nipper, aggressive file may aid in nail permeabili ty and effectiven ess of topical medication .Discussed topical vs oral medication s. [id number] Tiffany Jackson MD IND[facility]_K [place]DOC [address] [place] [address] 04/27/2024 14:16:55 04/27/2024 14:48:02 Coronary arteriosclerosis 32704555 I25.10 mild-moder ate disease on [facility] 12/2023-con tinue ASA, statin History of aortic valve replacement 8048736124 100 Z95.4 12/2023 26 mm Swift Avani in [facility]- antibiotic prophylaxi s-did not finish cardiac rehab prior to move, recommend cardiac rehab Essential hypertension 44135702 I10 controlled , goal <130/80 Hyperlipidemia 63191280 E78.5 History of endocarditis 444970667 Z86.79 Atrial fibrillation 4943 6004 I48.91 not on anticoagul ation, he is unaware of diagnosis but chart review mentions it-recomme nd monitor, Zio 14 days [id number] Rosa Maria Hartman DO IND_SMG_D IX_DOC [address] [place] [address] 05/18/2024 13:36:33 05/18/2024 15:24:50 Does mobilize using cane 311864013 Z99.89 M62.81 using cane but very unsteady. at risk of fall. idealy would have walker with seat and breaks to reduce risk of fall. At [facility] risk for falls 784104336 Z91.81 Degenerati ve disorder of macula 774208173 H35.30 Gastroesop hageal reflux disease 832709256 K21.9 Seizure 47336269 R56.9 single episode- in hospital in aug 2023- when anemic/wor joe on a blood transfusio n post operative- no seizure since. Anemia in chronic kidney disease 622015243 D63.1 Chronic ki dney disease stage 3B 839893912 N18.32 h/o. get records Diabetic p eripheral neuropathy 866379824 E11.40 1000mg bid IR- with diarrhea- pt backed down to 1 tab daily was then constipati on- change to metformin er 750mg bid for now. needs test strips- but not sure what he has at home. bs running around 100. no low blood sugars. not eaten anything today yet- due to not hungry and busy. start metformin. goal a1c less than 7. Adult heal th examination 850002219 Z00.00 not medicare wellness. Screening for cardiovascular system disease 014470748 Z13.6 Skin nodule 71612089 R22 .9 1cm. no dysplasia. no erythema or discharge- likely small dermatofib martell. no h/o skin cancer- not changed in years. pt declined derm referral today- too busy with moving/and low risk today. 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 xray reviewed. Lumbar radiculopathy 128 306567 M54.16 moved from [place]- with prior surgery with loose hardware- was told needed to remove hardware about 1 year ago due to having pain. but then had heart issue- so was put on hold. worse with standing on his feet- has to sit down- and then better. tends to walk stooped over. Compressio n fracture of thoracic vertebra 3993437445 104 M48.54XD Solitary n odule of lung 454486260 R91.1 10mm right upper lobe nodule- 6 month follow up due. prior imaging in [place]. Active or passive immunization 461360793 Z23 [id number] Pia Thomason MD IND_SMG_K N3_DOC [address] [facility] [place] [address] 06/02/2024 09:36:49 06/02/2024 11:13:15 Polyneuropathy due to type 2 diabetes mellitus 092255847 E11.42 He has a typical length-dep endent sensory neuropathy affecting primarily his feet. The pain is under control on pregabalin and he is not sure if that he needs this medication at this time. It would be reasonable to decrease to once a day or potentiall y then off if the neuropathi c pain is not significan t. Syncope 431432331 R55 His August 2023 syncopal episode occurred in the midst of an apparent [place]. He must of also had severe aortic stenosis requiring a TAVR. We will request [place] records especially any records of brain and/or spinal imaging for completene ss. Multifacto rial gait problem 079262624 R26.89 Possible factors include his underlying sensory neuropathy , concussion , repeated hypoglycem ic episodes, potential spinal disease, large joint arthritis and his age. Mild memor y disturbance 440452409 R41.3 On his initial cognitive evaluation today he has fairly mild short-term memory impairment . We will plan to perform a full slums or MoCA at his next visit. If not already performed when he was living in [place] we will proceed with brain imaging and the usual memory labs. [id number] Rogelio Zendejas MD IND_SMG_K OS_DOC [address] [facility], [address] [place] [address] 06/09/2024 13:28:42 06/09/2024 14:40:56 Pain of shoulder region 57668897 M25.511 83-year-ol d male presents for evaluation of his right shoulder pain. Three views of the right shoulder dated 05/11/2024 were viewed/int erpreted and notable for mild degenerati ve changes to the glenohumer al joint. There is a downslopin g anterolate ral acromion/a subacromia l osteophyte . There are no fractures or acute osseous abnormalit ies. I reviewed the imaging with the patient on exam today. He has a history of chronic intermitte nt shoulder pain. However, he is currently in therapy, and he notes that his shoulder pain has improved with conservati ve measures. His shoulder does not interfere with his activities of daily living, and he reports that his shoulder is a small problem at this time. Therefore, he is going to continue with therapy. He is going to call the orthopedic clinic if he has a significan t increase in his pain. 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 Discussed proper control of blood sugar and maintainin g a WNL A1c is essential. Discussed daily inspection of feet and to contact a medical profession al with any signs of wounds. Education emphasizin g disease control, proper fitting footwear, self inspection , skin/nail/ callus care and early reporting of foot injuries. Depth-inla y footwear, molded/mod ified orthoses; modified/c ustom footwear, ankle-foot orthoses as needed. Routine follow-up 9 12 week for foot/ activity/ footwear evaluation and callus/mert l care Dystrophia unguium 83330 009 L60.3 Discussed fungal nail condition. Discussed treatment options for maintainan ce and medication use.Discus sed weekly debulking of pathology with a nipper, aggressive file may aid in nail permeabili ty and effectiven ess of topical medication .Discussed topical vs oral medication s. [id number] Rosa Maria Hartman DO IND_SMG_D IX_DOC [address] [place] [address] 07/16/2024 15:41:40 07/16/2024 17:20:34 Body mass index 20-24 - normal 731279714 Z68.23 Constipation 01271107 K5 9.00 now better. Does mobil ize using cane 271941412 Z99.89 M62.81 using cane but very unsteady. at risk of fall. ideally would have walker with seat and breaks to reduce risk of fall. Active or passive immunization 593605636 Z23 [facility]. Retention of urine [address] dsouza- and just monitoring for now. Chronic ki dney disease stage 3B 407025571 N18.32 h/o. get records Osteopenia 191625683 M85 .80 tscore -2.3- in 2022 Adult heal th examination 506913651 Z00.01 medicare wellness Advance care planning 71 7062569 Z71.89 would like his [phone] 20 or daughter Vivien Agarwal to make medical decisions if needed. If prolong his life without pain and functionin g. would like cpr with good prognosis or ask family. would like intubation /ventilato r up to 2 weeks with good prognosis or ask family. updated Abdominal aortic aneurysm screening 542650403 Z13.6 Hepatitis C screening 41 0017610 Z11.59 Screening for cardiovascular system disease 479152288 Z13.6 At [facility] risk for falls 931603482 Z91.81 Sensorineu ral hearing loss of bilateral ears 750602799 H90.3 no current hearing aides. Tooth disorder 261103796 K08.9 needs to see dentist. Gout 24579484 M10.9 worsened. started. recheck uric acid. Coronary arteriosclerosis 77888655 I25.10 seeing cardio. prior surgery last year. Hyperglycemia 87680018 R 73.9 Gastroesop hageal reflux disease 140320027 K21.9 pt requested after appt- not sure why he was on 40mg daily- and ideally we need to reduce this- but will clarify and refill short term for now. Essential hypertension 65727077 I10 meds reviewed. no chest pain today. Overactive urinary bladder 054630257 N32.81 [id number] Ifrah WHYTE IND_SMG_K N3_DOC [address] [place] [address] 09/01/2024 13:46:51 09/01/2024 15:18:17 Multifactorial gait problem 259967048 R26.89 Possible factors include his underlying sensory neuropathy , concussion , repeated hypoglycem ic episodes, potential spinal disease, large joint arthritis and his age. 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 Mild neuro cognitive disorder 360337664 G31.84 Slums today. He has difficulty with some short term memory for the last 5 years, it is a gradual decline. CT head in Aug 2023 from [place]: no large vessel infarction , bleed, or masses. Moderate chronic age related periventri cular and subcortica l hypodensit ies consistent with small vessel ischemic disease. Next step would be to get MRI brain. He would like to wait for the MRI until after Sep 29, when he has new insurance because it was expensive for him this year when Dr. Shane ordered it. We may also consider Neuropsych eval at the next visit. We will order memory labs today. [id number] Rosa Maria Hartman DO IND_SMG_D IX_DOC [address] [place] [address] 2024 09:34:33 2024 10:59:45 Chronic kidney disease stage 4 664248578 N18.4 Anemia in chronic kidney disease 909945607 D63.1 Uncontroll ed type 2 diabetes mellitus 714153079 E11.65 bs 141 this am. yesterday 120. fasting in am. had to stop metformin due to drop in kidney function. seeing dr. reyes now. Gout 46241452 M10.9 worsened. started. recheck uric acid. start allopurino l. Gastroesop hageal reflux disease 061621701 K21.9 pt requested after appt- not sure why he was on 40mg daily- and ideally we need to reduce this- but will clarify and refill short term for now. Hypoglycem ia due to type 2 diabetes mellitus 3419162699 80750 E11.65 has dexcom 7 Chronic di astolic heart failure 320196562 I50.32 ef 60% in 08/2023 Diabetic p eripheral neuropathy 653602814 E11.40 Benign pro static hyperplasia with outflow obstruction 660720898 N40.1 Insomnia 955971414 G47.0 0 [facility]t next month. Does mobil ize using cane 510340751 Z99.89 M62.81 using cane but very unsteady. at risk of fall. ideally would have walker with seat and breaks to reduce risk of fall. Pain of ear 497181387 H9 2.02 Abnormal gait 92758553 R 26.89 M62.81 use cane Constipation 18171023 K5 9.00 now better. issues this weekend. tried fleets. tried dulcolax to help. did not help as much with miralax. may try metamucil. 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 Memory impairment 358253 006 R41.3 mild. reviewed with pt. memory testing reviewed. [id number] MESERET CORBIN NP IND_SMG_P OD_DOC [address] [address] 10/11/2024 12:57:53 10/11/2024 13:37:09 Disorder of nervous system due to type 2 diabetes mellitus 112293351 E11.49 Discussed patients diabetic foot exam. Discussed proper control of blood sugar and maintainin g a WNL A1c is essential. Discussed daily inspection of feet and to contact a medical profession al with any signs of wounds. Education emphasizin g disease control, proper fitting footwear, self inspection , skin/nail/ callus care and early reporting of foot injuries. Depth-inla y footwear, molded/mod ified orthoses; modified/c ustom footwear, ankle-foot orthoses as needed. Routine follow-up 9 12 week for foot/ activity/ footwear evaluation and callus/mert l care Dystrophia unguium 00202 009 L60.3 Discussed fungal nail condition. Discussed treatment options for maintainan ce and medication use.Discus sed weekly debulking of pathology with a nipper, aggressive file may aid in nail permeabili ty and effectiven ess of topical medication .Discussed topical vs oral medication s. [id number] Tiffany Jackson MD IND_SMG_K OK_DOC [address] [place] [address] 10/26/2024 14:12:35 10/26/2024 15:12:06 Coronary arteriosclerosis 35446005 I25.10 mild-moder ate disease on [facility] 12/2023-con tinue ASA, statin History of aortic valve replacement 0462727641 100 Z95.4 12/2023 26 mm Swift Avani in [place]-a ntibiotic prophylaxi s Essential hypertension 67821230 I10 controlled , goal <130/80-co ntinue Metoprolol succinate 50 mg Hyperlipidemia 04429218 E78.5 08/2024 LDL 44-continu e Atorvatsat in History of endocarditis 949184071 Z86.79 [id number] Rosa Maria Hartman DO IND_SMG_D IX_DOC [address] [place] [address] 10/19/2024 12:47:26 10/19/2024 13:34:36 Thoracic back pain 831331189 M54.6 reviewed. flared. moderate-s evere. Hypoglycem ia due to type 2 diabetes mellitus 6044734843 57899 E11.65 has dexcom 7 Compressio n fracture of thoracic vertebra 9124476711 104 M48.54XD t1/t12 [id number] MESERET CORBIN NP IND_SMG_P OD_DOC [address] [place] [address] 12/13/2024 12:47:37 12/13/2024 13:47:50 Disorder of nervous system due to type 2 diabetes mellitus 005695343 E11.49 Discussed patients diabetic foot exam. Discussed proper control of blood sugar and maintainin g a WNL A1c is essential. Discussed daily inspection of feet and to contact a medical profession al with any signs of wounds. Education emphasizin g disease control, proper fitting footwear, self inspection , skin/nail/ callus care and early reporting of foot injuries. Depth-inla y footwear, molded/mod ified orthoses; modified/c ustom footwear, ankle-foot orthoses as needed. Routine follow-up 9 12 week for foot/ activity/ footwear evaluation and callus/mert l care Last A1C: 7.2 mg/dL 09/08/24 PCP/Endocr inologist: Dr. Shane Dystrophelis ungenmanuel 37494 009 L60.3 Discussed fungal nail condition. Discussed treatment options for maintainan ce and medication use.Discus sed weekly debulking of pathology with a nipper, aggressive file may aid in nail permeabili ty and effectiven ess of topical medication .Discussed topical vs oral medication s. Acquired keratoderma 400 164302 L85.1 [id number] Pia Thomason MD IND_SMG_K N3_DOC [address] [place] [address] 12/22/2024 13:31:21 12/22/2024 14:27:06 Multifactorial gait problem 133929957 R26.89 Possible factors include his underlying sensory neuropathy , concussion , repeated hypoglycem ic episodes, potential spinal disease, large joint arthritis and his age. He should use a cane or walker at all times especially when he is outside on uneven ground. 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 Syncope 843728844 R55 His August 2023 syncopal episode occurred in the midst of an apparent [place]. He must of also had severe aortic stenosis requiring a TAVR. Mild neuro cognitive disorder 460326378 G31.84 Today he is fully oriented, has normal visual-spa tial tasks, but does have mild short-term memory impairment . The fact that this is occurred over several years and he still is quite highly functionin g suggests that this is vascular in nature most likely. I will add memantine at this time and follow. He was instructed to get his hearing assessed and to get hearing aids if needed, finalized on legal documents, exercise mentally and physically , and to follow-up in 1 year. [id number] Rosa Maria Mike Acosta Hartman DO IND_SMG_D IX_DOC [address] [facility] [place] [address] 01/14/2025 15:29:08 01/14/2025 17:15:18 Paroxysmal atrial fibrillation 547006507 I48.0 08/2023 hospitaliz ation. taking tylenol PM- discussed not recommende d. bs running low 100's doing ok. Falls 873789583 R29.6 x2 few days ago- was raking leaves on a hill. check u/a. encourage balance therapy- but hard to afford at times. At [facility] ed risk for falls 822918713 Z91.81 R30.0 fell few times last few days. no burning with urination. no fever. Candidiasis of skin 4988 3006 B37.2 groin Does mobil ize using cane 956719799 Z99.89 M62.81 using cane but very unsteady. at risk of fall. ideally would have walker with seat and breaks to reduce risk of fall. Depression screening 171 670120 Z13.31 Diabetic p eripheral neuropathy 264836211 E11.40 meds reviewed. goal less than 7. recurrent falls- at risk/not at goal. Financial problem 032725 005 Z59.9 mild. doing ok but hard to afford physical therapy. encourage you tube video's on line and leg strengthen ing/exerci ses. Anemia 299583141 D64.9 normal b12 and ferritin. more anemia of chronic disease. Pain in right thumb 1076 964481 380667 M79.644 emily thorn in right thumb few days. sore. got it out at the time they thought- but still sore for few weeks/3 weeks. encourage soaking with epsome salt and lidocaine topically. no sign of infection today. no erythema or warmth. slight 0.25cm nodule felt- but firm/gland ular. no visible splinter or thorn. no discharge. Health Concerns Section Related Observation LastModified by Organization Detai ls LastModified Time None Recorded Concern Status LastModified by Organization Details LastModified Time None Recorded Advance Directives Directive Y: Payers Insurance Date Sequence Insurance Name Policy Number Policy Zimmerman Covered Member ID Zimmerman Member ID Guarantor Name 01/12/2025 1 [employer] (MEDICARE REPLACEMENT/A DVANTAGE - PPO) JOSE Alok Cox [id number] Alok Cox 12/22/2024 1 DAY - GOLD PLUS (MEDICARE REPLACEMENT/A DVANTAGE - HMO) [id number] Alok Remy Santoss [id number] Alok Cox Notes Date Note Type Note Provider Name and Address Organization Details Recorded Time 10/19/2024 text/html see plan Rosa Maria Hartman DO [address], [address], [place], [address], [place] - [facility] 10/30/2024 23:58:44 10/26/2024 text/html 84 yo M history of CAD (mild-moderate of C 11/2023), severe s/p TAVR (26 mm Swift Avani 3 12/2023), 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 I met him 03/2024, he had recently moved from [place]. He was not aware of a history of atrial fibrillation but chart review mentioned so monitor was ordered. Denies any recent dyspnea, chest pain, syncope, LE edema, palpitations. HE does check his BP daily, 120/70s. Quit tobacco 50 years ago, No regular ETOH Studies:1. TTE 01/2024- EF 65%, indeterminate diastolic function, normal RV size with low normal function, bioprosthetic AV with appropriate function2. Monitor 05/2024- 52-194, avg 72, 16 SVT with longest 16 beats3. TTE 05/2024- EF 50-55%, conc LVH, stage I DD, RV normal size/function, TAVR valve not well seen with appropriate velocities Tiffany Jackson MD [address], [address], [place], [address], [place] - [facility] 10/26/2024 14:36:19 12/13/2024 text/html 84-year-old M presents with his for DFC. Denies any concerns today. MESERET CORBIN NP [address], [address], [place], [address], [place] [facility] [place] 12/13/2024 19:12:37 12/22/2024 text/html Memory LossRepor estefani bypatient.Severity:m ild Duration:has noted for years (5-10 yrs.) Onset/Timing:gradual onset Context:no history of seizure; no history of trauma; no tremors Associated Symptoms:does not become lost; able to drive; no disorientation; compliance with medications and treatment; able to manage finances; no difficulty dressing; no difficulty bathing; no difficulty feeding; no agitation/restlessne ss; no hallucinations; no depression; no change in personality; no sleep problems (on trazadone); but difficulty remembering peoples names, landmarks, short term memory. states sometimes she would tell him something and 20 minutes later he would forget at times, but once she tells him 2nd time he remembers it afterwards.Notes:CT head in Aug 2023: no large vessel infarction, bleed, or masses. Moderate chronic age related periventricular and subcortical hypodensities consistent with small vessel ischemic disease. 12/06/24 B12, folate, TSH, MMA normalPeripheral Neuropathy*Reported bypatient.Location:n umbness;tingling; feet Severity:moderate Duration:has noted for years Onset/Timing:gradual onset; unchanged since last visit. Modifying Factors:symptoms better with medication (Pregabalin is helpful to decrease the nerve pain component.) Associated Symptoms:difficulty climbing stairs;difficulty in the dark;difficulty walking on uneven surfaces;stumblesNot es:Stable.Balance is okay, uses a cane mostly at night in the house and always when he leaves house.Syncope-Dizzin essReported bypatient.History obtained from:patient; family member () Quality:lightheaded( occasionally when sitting or standing.);off balance(staggering, shuffling walking.) Severity:mild Onset/Timing:Pt thinks that this started suddenly in Aug 2023 when he had a syncopal episode and went to the hospital where they diagnosed an [place] and shortly thereafter needed a TAVR. He was hospitalized for 19 days and then sent to rehab for 3 weeks. Afterwards he was somewhat agitated (not common for him). Since then his balance and memory seemed worse. They also report that he has had recurrent episodes of quite low blood sugars over the years. Alleviating Factors:relieved with sitting (sometimes.) Associated Symptoms:bilateral feet numbness. Prior Evaluations:CT head; cardiac echoNotes:No recurrence. 4 mo f/u for mild memory disturbance, multifactorial gait problem, polyneuropathy due to DM. At his last visit we checked memory labs which were normal. Pia Thomason MD [address] [place] [address], [facility] [address], [place], [address], [place] - [facility] 12/22/2024 14:29:58 01/14/2025 text/html see meli Hartman DO [address] [place] [address], [address], [place], [address], [place] - [facility] [place] 01/16/2025 23:41:19
--- OUTSIDE RECORDS SUMMARY | 2025-02-20 06:16 | XMS_ITS | Referral Summary ---
Author Organization [facility] Address [address] [place] [address] Care Team Providers Care Trouble Shooter Name Role Phone No, Physician Primary Care Provider [phone] Allergies No known active allergies Social History [...] Mass Index - - Plan of Treatment Not on file Insurance MANAGED MEDICARE GENERIC MANAGED MEDICARE GENERIC Care Teams Trouble Shooter Relationship Specialty Start Date End Date No, Physician PCP - General 03/21/24
--- OUTSIDE RECORDS SUMMARY | 2025-02-20 06:16 | XMS_ITS | Data Portability ---
Author Organization [place] - [facility] Address [address] [place] [address] Assessment No assessment recorded. Plan of Treatment Reminders Order Date Submit Date Provider Last Modified By Organization Details Last Modified Time Details Appointments None recorded. Lab None recorded. Referral None recorded. Procedures optical coherence tomography , retina (PROC) 2023 024 [email or web address] 4 [facility] [place], [place], [address] [place] [address], [address], 4 17:44:46 optical coherence tomography , retina (PROC) 2022 023 [email or web address] 6 [facility] [place], [place], [address] [place] [address], [address], 3 15:22:49 Surgeries None recorded. Imaging photo, eye, fundus 2021 022 [email or web address] [facility] [place], [place], [address] [place] [address], [address], 2 14:27:07 Medication Orders None recorded. Patient TargetsNo targets recorded. Patient Instructions Encounter Date Encounter Id Patient Instructions Last Modified By Organization Details Last Modified Time 11/08/2022 [id number] [email or web address] Not available 10/30 15:22:29 10/23/2023 [id number] age-related macular degeneration: care instructions Not available 10/23/2023 17:44:46 type 2 diabetes: care instructions [email or web address] Not available 10/23/2023 17:44:46 learning about vitreous detachment [email or web address] Not available 10/23/2023 17:44:46 dry eyes: care instructions [email or web address] Not available 10/23/2023 17:44:46 Dr. Beto falcon Not available 17:41:33 Reason for Referral None Reported. Results Created Date Observation Date Name Description Value Unit Range Abnormal Flag Note LastModifiedBy Organization Detail LastModifiedTime 05/03/20 22 photo , eye, fundu s No observ ation record ed. Not Available 05/03 14:13:35 05/03/20 22 photo , eye, fundu s No observ ation record ed. Not Available 05/03 14:13:35 05/03/20 22 optic al coher ence tomog santnaa, retin a No observ ation record ed. [email or web address] Not Available 05/03 14:13:34 05/03/20 22 optic al coher ence tomog santana, retin a No observ ation record ed. [email or web address] Not Available 05/03 14:13:34 05/03/20 22 optic al coher ence tomog santana, retin a No observ ation record ed. [email or web address] Not Available 05/03 14:13:34 05/03/20 22 optic al coher ence tomog santana, retin a No observ ation record ed. [email or web address] Not Available 2021 14:26:11 05/03/20 22 optic al coher ence tomog santana, optic nerve No observ ation record ed. [email or web address] Not Available 2021 14:26:11 05/03/20 22 photo , eye, fundu s No observ ation record ed. [email or web address] [facility] [id number] [place] [address], [place], [address], 05/03/2022 14:17:38 11/08/19 23 optic al coher ence tomog santana, retin a No observ ation record ed. [email or web address] Not Available 11/08 15:20:25 11/08/19 23 optic al coher ence tomog santana, retin a No observ ation record ed. [email or web address] Not Available 11/08 15:20:24 11/08/19 23 optic al coher ence tomog santana, retin a No observ ation record ed. [email or web address] Not Available 11/08 15:20:24 11/08/19 23 optic al coher ence tomog santana, optic nerve No observ ation record ed. [email or web address] Not Available 11/08 15:20:24 11/08/19 23 optic al coher ence tomog santana, retin a No observ ation record ed. [email or web address] Not Available 11/08 15:20:24 10/23/19 24 optic al coher ence tomog santana, retin a No observ ation record ed. [email or web address] Not Available 10/23 15:56:22 10/23/19 24 optic al coher ence tomog santana, retin a No observ ation record ed. [email or web address] Not Available 10/23 15:56:22 10/23/19 24 optic al coher ence tomog santana, retin a No observ ation record ed. Not Available 10/23 15:56:21 10/23/19 24 optic al coher ence tomog santana, optic nerve No observ ation record ed. [email or web address] Not Available 10/23 15:56:21 10/23/19 24 optic al coher ence tomog santana, retin a No observ ation record ed. [email or web address] Not Available 10/23 15:56:21 Result Notes None recorded. Problems No Known Problems Procedures Surgical History Date Name Laterality Status Provider Name and Address Organization Details Recorded Time 2 Yag Capsulotomy completed Alize Majano [facility] 05/03/2022 14:28:34 2 Yag Capsulotomy completed Alize Majano [facility] 05/03/2022 14:27:50 Cataract Surgery completed Jayro Louise [facility] 05/03/2022 14:13:53 Imaging Results Imaging Date Name Status LastModified by [facility] Details LastModified Time 05/03/2022 photo, eye, fundus completed [email or web address] Information not available 05/03/2022 14:13:35 05/03/2022 photo, eye, fundus completed [email or web address] Information not available 05/03/2022 14:13:35 05/03/2022 optical coherence tomogram, retina completed [email or web address] Information not available 05/03/2022 14:13:34 05/03/2022 optical coherence tomogram, retina completed [email or web address] Information not available 05/03/2022 14:13:34 05/03/2022 optical coherence tomogram, retina completed Information not available 05/03/2022 14:13:34 05/03/2022 optical coherence tomogram, retina completed Information not available 05/03/2022 14:26:11 05/03/2022 optical coherence tomogram, optic nerve completed Information not available 05/03/2022 14:26:11 05/03/2022 photo, eye, fundus completed [email or web address] [facility] [address], [place], [address], 05/03/2022 14:17:38 11/08/2022 optical coherence tomogram, retina completed [email or web address] Information not available 11/08/2022 15:20:25 11/08/2022 optical coherence tomogram, retina completed [email or web address] Information not available 11/08/2022 15:20:24 11/08/2022 optical coherence tomogram, retina completed [email or web address] Information not available 11/08/2022 15:20:24 11/08/2022 optical coherence tomogram, optic nerve completed [email or web address] Information not available 11/08/2022 15:20:24 11/08/2022 optical coherence tomogram, retina completed [email or web address] Information not available 11/08/2022 15:20:24 10/23/2023 optical coherence tomogram, retina completed [email or web address] Information not available 10/23/2023 15:56:22 10/23/2023 optical coherence tomogram, retina completed [email or web address] Information not available 10/23/2023 15:56:22 10/23/2023 optical coherence tomogram, retina completed [email or web address] Information not available 10/23/2023 15:56:21 10/23/2023 optical coherence tomogram, optic nerve completed [email or web address] Information not available 10/23/2023 15:56:21 10/23/2023 optical coherence tomogram, retina completed [email or web address] Information not available 10/23/2023 15:56:21 Procedure Notes None recorded. Medical Equipment None Reported. Allergies Allergen ID Allergen Name Allergen Category Reaction Reaction Severity Criticality Documentation Date Start Date Code Code System Note Provider Name and Address Organization Details Recorded Time 16187 morphine medicatio n confusion Not available Not available 05/03/2022 7052 RxNorm feels like bugs crawl ing under skin Amalia whiting [place] - [facility] 13:27:47 Medications Name Sig Start Date Stop Date Status Note LastModified by Organization Details LastModified Time celecoxib 200 mg capsule active Not Available Not Available Not Available atorvastati n 40 mg tablet 05/03 completed Not Available Not Available Not Available atorvastati n 20 mg tablet active Not Available Not Available Not Available hydrocodone 5 mg-acetamin ophen 325 mg tablet active Not Available Not Available No t Available prednisone 20 mg tablet active Not Available Not Available Not Available Accu-Chek Softclix Lancets 05/03 completed Not Available Not Available Not Available omeprazole 40 mg capsule,del ayed release active Not Available Not Available Not Available vancomycin 1,000 mg intravenous injection active Not Available Not Available No t Available tamsulosin 0.4 mg capsule active Not Available Not Available Not Available trazodone 100 mg tablet active Not Available Not Available Not Available metformin 1,000 mg tablet active Not Available Not Available Not Available meropenem 1 gram intravenous solution active Not Available Not Available Not Available allopurinol 300 mg tablet active Not Available Not Available Not Available vancomycin 10 gram intravenous solution active Not Available Not Available Not Available ketoconazol e 2 % topical cream APPLY TO THE AFFECTED AREA TWICE DAILY NEEDED active Not Available Not Available No t Available losartan 100 mg tablet active Not Available Not Available Not Available Alcohol Prep Pads 05/03 completed Not Available Not Available Not Available metoprolol tartrate 25 mg tablet active Not Available Not Available No t Available pregabalin 75 mg capsule TAKE ONE CAPSULE BY MOUTH TWICE DAILY active Not Available Not Available No t Available BD Ultra-Fine Short Pen Needle 31 gauge x 5/16 05/03 completed Not Available Not Available Not Available Lantus Solostar U-100 Insulin 100 unit/mL (3 mL) subcutaneou s pen active Not Available Not Available Not Available Novofine 32 32 gauge x 1/4 needle 05/03 completed Not Available Not Available Not Available Accu-Chek FastClix Lancing Device kit 05/03 completed Not Available Not Available Not Available Accu-Chek Guide test strips active Not Available Not Available Not Available Accu-Chek Guide L1-L2 Control Solution 05/03 completed Not Available Not Available Not Available Accu-Chek Guide Me Glucose Meter 05/03 completed Not Available Not Available Not Available Vitals None Recorded Social History Question Answer Notes LastModified by Organizat ion Details LastModified Time Tobacco Smoking Status Never Smoker AMAN Romo [facility] 05/03/2022 13:27:58 What Was The Date Of Your Most Recent Tobacco Screening? 10/23/2023 [email or web address] Information not available 10/23/2023 Sex: Unknown Functional Status Question Answer Note LastModified by Organization D etails LastModified Time Do you or have you ever used any other forms of tobacco or nicotine? No [email or web address] Information not available 05/03/2022 Mental Status None recorded. Family History Relationship Description Onset Age of this Age Resolved Age Notes LastModified by Organization Details LastModified Time Mother Diabetes mellitus Not available 2021 13:28:09 Medical History Condition Response Coronary Artery Disease N Thyroid Disease N Blood disorders N Lung Disease N Depression N COPD N Gastrointestinal Disease N Seasonal Allergies Y Anxiety Disorder N Arthritis N Head Injury/Concussion N Cancer N Stroke N High Cholesterol Y Neurologic Disorder N Liver Disease N Psychiatric/Mental Health Condition N Headaches Y Acid Reflux Y Ambloypia N Diabetic Eye Disease N Multiple Sclerosis N Meningitis N Diabetes Y Eye Trauma N Myocardial Infarction N Double Vision N Ocular trauma N Asthma N Sleep Apnea N Heart Disease N Hypertension Y Flomax Use Past or Present N Past Encounters Encounter ID Performer Location Encounter Start Date Encounter Closed Date Diagnosis/Indication Diagnosis SNOMED-CT Code Diagnosis ICD10 Code Diagnosis Note [id number] CARLOS HERRERA DO [facility] [address] [address] 05/03/2022 13:06:16 05/06/2022 11:31:38 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 384576896 E11.3291 Continue care with Primary Care Physician- Photo today- RTC in 6 months for DFE/OCT 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 251559281 E11.3392 Continue care with Primary Care Physician- Photo today- RTC in 6 months for DFE/OCT Nonexudati ve age-related macular degeneration [id number] H35.3131 Discussed findings with patient- Continue AREDS 2 multivitam in- Patient denies tobacco use- RTC in 6 months for DFE with OCT Posterior capsule opacification 404982854 H26.492 Recommend YAG OS to improve functional vision and reduce glare_ Performed YAG in office today without complicati ons- Educated signs and symptoms of RT/RD/RH and educated patient to RTC immediatel y if changes occur [id number] CARLOS HERRERA DO [facility] [place] [address] [place] [phone] 11/08/2022 13:53:16 11/08/2022 15:27:53 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 189348760 E11.3291 Continue care with Primary Care Physician- RTC in 6 months for DM/Photo 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 228353064 E11.3392 See above Nonexudati ve age-related macular degeneration 254202046 H35.3131 Discussed findings with patient- Continue AREDS 2 multivitam in- Patient denies tobacco use- RTC in 6 months for CE with OCT [id number] Alia Zabala, OD [facility] [place] [address] [place] [phone] 10/23/2023 14:02:03 10/23/2023 17:57:06 Type 2 diabetes mellitus without complication 495415907 E11.9 No Diabetic Retinopath y noted- Continue care with Primary Care Physician- Unable to get photos d/t pt mobility- No DME on OCTs today- RTC in 12 months for CE/photo Nonexudati ve age-related macular degeneration 521459499 H35.3131 OU, OS>OD. Early dry- OD has RPE changes, hyperpigme ntation- OS has RPE changes with drusen. OCTs taken today.- No SRF/SRH on DFE or OCTs today- Continue AREDS2 BID PO- Monitor at home w/ Amsler grid, to report changes to clinic ger*RTC 6 mo recheck macs w/ DFE/OCTs Posterior vitreous detachment [id number] H43.819 H43.813 OU- Discussed s/s of RH/RT/RD and to RTC GER if noticing- No holes/tear s/detachme nts on DFE OU today- Monitor Stahli's line 54958397 H 18.013 OU - iron line inferior 1/3Monitor Dry eyes 637799713 H04.1 23 OURecommen d PFATs throughout the day and karlie while readingMon itor Health Concerns Section Related Observation LastModified by Organization Detai ls LastModified Time None Recorded Concern Status LastModified by Organization Details LastModified Time None Recorded Advance Directives Directive None Recorded Payers Encounter Date Sequence Insurance Name Policy Number Policy Zimmerman Covered Member ID Zimmerman Member ID Guarantor Name 05/03/2022 1 [employer] (MEDICARE REPLACEMENT PPO) Alok Cox [id number] Alok Cox 11/08/2022 1 [facility] (MEDICARE REPLACEMENT/ADV ANTAGE - PPO) [id number] Alok Cox [id number] Alok Cox 10/23/2023 1 [employer] (HMO) Alok Cox [id number] Alok Cox Notes Date Note Type Note Provider Name and Address Organization Details Recorded Time 11/08/2022 text/html Comprehensive Ey e ExamReported bypatient.Location: left Modifying factors:wears glasses for readers only Associated Symptoms:no redness;itching;maribeth aters bilateral;dryness Jayro Louise null, [place] - [facility] 11/08/2022 15:23:00 10/23/2023 text/html Diabetes (Ophthalmology)Repo rted bypatient.Onset/Woodrow ing:chronic Context:12 month exam Control:recent blood sugar is 85; treated with insulin Associated Symptoms:no kidney disease;blurred vision both eyes distance [place] near [place] [address] [facility], [place], [address], [place] - [facility] 10/23/2023 17:45:01
[2025-02-20 06:26] LABS: Basophils Absolute Auto 0.1 K/mm3 (0.0-0.1); Basophils Percent Auto 0.5 % (0.2-1.2); Eosinophils Absolute Auto 0.1 K/mm3 (0-0.3); Eosinophils Percent Auto 0.9 % (0-4.4); Hematocrit 35.4 % (42.0-52.0); Hemoglobin 11.6 g/dL (14.0-18.0); Immature Granulocyte Absolute 0.04 K/mm3 (0.00-0.031); Immature Granulocyte Percent A 0.4 % (0-0.5); Lymphocytes Absolute Auto 1.25 K/mm3 (0.9-3.2); Lymphocytes Percent Auto 11.8 % (18.3-44.2); Mean Corpuscular HGB Conc 32.8 g/dl (32-36); Mean Corpuscular Hemoglobin 31.4 pg (26-34); Mean Corpuscular Volume 95.9 fl (80-100); Mean Platelet Volume 10.9 fl (7.4-10.4); Monocytes Absolute Auto 0.8 K/mm3 (0.1-0.6); Monocytes Percent Auto 7.1 % (2.6-8.5); Neutrophils Absolute Auto 8.4 K/mm3 (1.3-6.7); Neutrophils Percent Auto 79.3 % (45.5-73.1); Platelet Count Result 135 k/mm3 (150-375); Red Blood Count 3.69 M/mm3 (4.6-6.20); Red Cell Distribution Width 13.8 % (11.5-14.5); White Blood Count 10.6 K/mm3 (4.5-10.0)
[2025-02-20 06:36] LABS: Alanine Aminotransferase 22 U/L (6-50); Albumin Level 4.1 g/dL (3.5-5.1); Alkaline Phosphatase 79 U/L (38-126); Anion Gap 9 mmol/L (4-12); Aspartate Amino Transferase 29 U/L (17-59); Bilirubin,Total 0.3 mg/dL (0.2-1.3); Blood Urea Nitrogen 33 mg/dL (9-20); Calcium 8.8 mg/dL (8.4-10.2); Carbon Dioxide 24 mmol/L (22-30); Chloride 109 mmol/L (98-107); Estimated CRCL calculation 21 ml/min; Estimated Glomerular Filt Rate 27; Glucose 191 mg/dL (65-110); Lactic Acid Reflex 1.4 mmol/L (0.7-2.0); Potassium 4.4 mmol/L (3.4-5.0); Sodium 142 mmol/L (137-145)
[2025-02-20 06:37] VITALS: BP 131/77; PULSE 74; RESP 16; O2SAT 98
[2025-02-20 06:51] LABS: Add Urine Microscopic? YES; Appearance Urine Clear (Clear); Bacteria Urine None Seen /hpf; Bilirubin Urine Negative (Negative); Blood Urine Negative (Negative); Color Urine Yellow (Yellow); Glucose Urine UA 2+ mg/dL (Negative); Ketones Urine Negative (Negative); Leukocyte Esterase Ur Negative LEU/UL (Negative); Nitrate Urine Negative (Negative); Non Pathogenic Casts 0-2; Protein Urine Trace mg/dL (Negative); RBC Urine 0-2 /hpf (0-2); Specific Grav Ur 1.014 (1.001-1.035); Squamous Epithelial Cell Urine None Seen /hpf (Few); Urobilinogen Urine 0.2 mg/dL (<2.0); WBC Urine 0-5 /hpf (0-3)
[2025-02-20 07:16] VITALS: BP 144/71; PULSE 73; RESP 18; O2SAT 99
[2025-02-20] MEDS: SODIUM CHLORIDE 0.9% IV 1,000 ML 999 ML IV CONT (07:38)
[2025-02-20] MEDS: GLYCERIN ADULT 1 SUPP.RECT RECTAL (08:00)
[2025-02-20] MEDS: PSYLLIUM POWDER PACKET 1 PACKET PO (08:24)
[2025-02-20] MEDS: MAGNESIUM CITRATE 300 ML BTL 150 ML PO (08:24)
[2025-02-20] MEDS: polyethylene glycoL 3350 17 GM POWD.PACK PO (08:24)
== END 2025-02-20 08:43 | disposition home or self-care (01) ==
PROVIDERS: Emergency Provider Student in an Organized Health Care Education/Training Program
DX: K56.41 Fecal impaction (principal); N18.9 Chronic kidney disease, unspecified; D64.9 Anemia, unspecified; R73.9 Hyperglycemia, unspecified
CPT/HCPCS: 36415; 74176; 80053; 81001; 83605; 83735; 85025; 96360; 99284; A9270; J7030